=== PATIENT | male | born 1940 | race Caucasian/White ===

== ENCOUNTER 2024-06-07 12:14 | Inpatient (IN) | payer OTHER, MEDICARE ==
[~2024-06-07] VITALS: Ht 157.5 cm; Wt 58.7 kg
--- NOTE | 2024-06-07 12:41 | ED.PDOC ---
HPI Comments 83 Y M BIBA with PMHX of HTN, COPD, CAD, and CHF presents to the ED with CC of chest pain. Per EMS, patient has been experiencing intermittent left sided non- radiating chest pain x1hour. Patient relays, that he has associated symptoms of cough with you sputum and shortness of breath which have persisted x1week. Per EMS, patient was given 1g Tylenol and was put on 2L NC in route to ED stating at 90%. Patient denies fever, chills, body aches, or N/V/D. Chief Complaint: Chest Pain Time Seen by MD: 12:20 Reviewed Notes: Nurses Notes, [place] [employer] Ribs Notes, Medications, Allergies Information Source: Patient, Emergency Med Personnel Mode of Arrival: EMS Severity: Moderate Timing: Hours Duration: Since onset Prehospital treatment: Other (1g tyleno, 2L NC) Location: Chest (L) Radiation: No Radiation Onset: At Rest Cardiac Risk Factors: Smoker, HTN PE Risk Factors: None History of: None Associated Signs and Symptoms: SOB Past Medical History PAST MEDICAL HISTORY: CAD, Cancer, CHF, COPD, High Lipids, HTN Surgical History: CABG, Tonsillectomy Family History Family History: Unknown Social History Smoker: Cigarettes Alcohol: Denies ETOH Use Drugs: Denies Drug Use Lives In: Home Constitutional: denies: chills, diaphoresis, fatigue, fever, malaise, sweats, weakness, others EENTM: denies: blurred vision, double vision, ear bleeding, ear discharge, ear drainage, ear pain, ear ringing, eye pain, eye redness, hearing loss, mouth pain, mouth swelling, nasal discharge, nose bleeding, nose congestion, nose pain, photophobia, tearing, throat pain, throat swelling, voice changes, others Respiratory: reports: cough, shortness of breath; denies: hemoptysis, orthopnea, SOB at rest, SOB with excertion, stridor, wheezing, others Cardiovascular: reports: chest pain; denies: dizzy spells, diaphoresis, Dyspnea on exertion, edema, irregular heart beat, left arm pain, lightheadedness, palpitations, PND, syncope, others Gastrointestinal: denies: abdomen distended, abdominal pain, blood streaked bowels, constipated, diarrhea, dysphagia, difficulty swallowing, hematemesis, melena, nausea, poor appetite, poor fluid intake, rectal bleeding, rectal pain, vomiting, others Genitourinary: denies: burning, dysuria, flank pain, frequency, hematuria, incontinence, penile discharge, penile sore, pain, testicle pain, testicle swelling, urgency, others Neurological: denies: dizziness, fainting, headache, left sided numbness, left sided weakness, numbness, paresthesia, pre-existing deficit, right sided numbness, right sided weakness, seizure, speech problems, tingling, tremors, weakness, others Musculoskeletal: denies: back pain, gout, joint pain, joint swelling, muscle pain, muscle stiffness, neck pain, others Integumetry: denies: bruises, change in color, change in hair/nails, dryness, laceration, lesions, lumps, rash, wounds, others Allergic/Immunocompromised: denies: Difficulty Healing, Frequent Infections, Hives, Itching, others Hematologic/Lymphatic: denies: anemia, blood clots, easy bleeding, easy bruising, swollen glands, others Endocrine: denies: excessive hunger, excessive sweating, excessive thirst, excessive urination, flushing, intolerance to cold, intolerance to heat, une xplained weight gain, unexplained weight loss, others Psychiatric: denies: anxiety, bipolar disorder, depression, hopeless, panic disorder, schizophrenia, sleepless, suicidal, others All Other Systems: Reviewed and Negative Physical Exam General Appearance: Moderate Distress HEENT: Normal ENT Inspection, Pharynx Normal, TMs Normal Neck: Full Range of Motion, Non-Tender, Normal, Normal Inspection Respiratory: Chest Non-Tender, Decreased Breath Sounds, No Accessory Muscle Use, Rhonchi Cardiovascular: No Edema, No JVD, No Murmur, No Gallop, Normal Peripheral Pulses, Regular Rate/Rhythm Breast Exam: Deferred Gastrointestinal: No Organomegaly, Non Tender, No Pulsatile Mass, Normal Bowel Sounds, Soft Genitalia: Deferred Pelvic: Deferred Rectal: Deferred Extremities: No calf tenderness, Normal capillary refill, Normal inspection, Normal range of motion, Non-tender, No pedal edema Musculoskeletal : Apperance: Normal Neurologic: Alert, director of student affairs II-XII nml as Tested, No Motor Deficits, Normal Affect, Normal Mood, No Sensory Deficits Cerebellar Function: Normal Reflexes: Normal Skin: Dry, Normal Color, Warm Lymphatic: No Adenopathy EKG EKG : Pulse Rate (adult): 77 Rienzi: LAD Cardiac Rhythm: NSR Block: None Hypertrophy: None ST: Normal Was a procedure done? Was a procedure done?: No CP Differential Dx Differential Diagnosis: Angina, MA Differential Diagnosis: CHF, HTN Essential Differential Diagnosis: Chest Wall Pain, Costochondritis, Pneumonia X-Ray, Labs, Meds, VS Vital Signs Date Time Temp Pulse Resp B/P (MAP) Pulse Ox O2 Delivery O2 Flow Rate FiO2 06/07/24 13:05 56 06/07/24 12:57 68 20 98 Nasal Cannula* 2 28 06/07/24 12:56 98.1 68 20 123/81 (95) 98 98.1 06/07/24 12:41 77 06/07/24 12:18 98.8 60 19 142/51 (81) 97 06/07/24 12:16 77 Lab Test 06/07/24 13:43 06/07/24 12:29 Range/Units Troponin I High Sensitivity Pending 10 </=54 ng/L White Blood Count 7.3 4.4-10.8 10^3/uL Red Blood Count 4.38 L 4.5-5.90 10^6/uL Hemoglobin 12.9 L 13.5-17.5 g/dL Hematocrit 38.3 L 41.0-53.0 % Mean Corpuscular Volume 87.5 80.0-100.0 fL Mean Corpuscular Hemoglobin 29.5 28.0-32.0 pg Mean Corpuscular Hemoglobin Concent 33.7 32.0-36.0 g/dL Red Cell Distribution Width 14.1 11.8-14.3 % Platelet Count 256 140-450 10^3/uL Mean Platelet Volume 7.1 6.9-10.8 fL Neutrophils (%) (Auto) 68.7 37.0-80.0 % Lymphocytes (%) (Auto) 18.0 10.0-50.0 % Monocytes (%) (Auto) 12.6 H 0.0-12.0 % Eosinophils (%) (Auto) 0.3 0.0-7.0 % Basophils (%) (Auto) 0.4 0.0-2.0 % Neutrophils # (Auto) 5.0 1.6-8.6 10 ^3/uL Lymphocytes # (Auto) 1.3 0.4-5.4 10 ^3/uL Monocytes # (Auto) 0.9 0-1.3 10 ^3/uL Eosinophils # (Auto) 0 0-0.8 10 ^3/uL Basophils # (Auto) 0 0-0.2 10 ^3/uL Nucleated Red Blood Cells 0.0 % Sodium Level 138 136-145 mmol/L Potassium Level 2.7 L 3.5-5.1 mmol/L Chloride Level 106 98-107 mmol/L Carbon Dioxide Level 26 20-31 mmol/L Anion Gap 6 5-15 Blood Urea Nitrogen 9 9-23 mg/dL Creatinine 0.68 L 0.700-1.30 mg/dL Glomerular Filtration Rate Calc 91 >90 mL/min BUN/Creatinine Ratio 13.2 10.0-20.0 Serum Glucose 132 H 74-106 mg/dL Calcium Level 9.0 8.7-10.4 mg/dL Total Bilirubin 1.0 0.2-1.0 mg/dL Aspartate Amino Transferase (AST) 36 13-40 U/L Alanine Aminotransferase (ALT) 31 7-40 U/L Alkaline Phosphatase 94 46-116 U/L B-Type Natriuretic Peptide Pending Total Protein 5.9 5.7-8.2 g/dL Albumin 3.3 3.2-4.8 g/dL Current Medications Medications (Trade) Dose Ordered Sig/Berkley Route Start Time Stop Time Status Last Admin Methylprednisolone Sodium Succinate (Solu Medrol) 125 mg ONCE ONCE IV 06/07/24 12:30 06/07/24 12:31 DC 06/07/24 12:45 Repeat EKG showed 56 LAE with normal sinus rhythm The patient was given Solu-Medrol 125 mg IV push The patient's CBC is within normal limits. Chest x-ray shows multifocal pneumonia The chemistry panel is within normal limits. At this time, the patient will be admitted at this time Blood cultures x2 has been drawn. The lactic acid level is pending The patient will be started on Levaquin after the blood cultures were drawn The patient was being admitted at this time. The troponin level is negative We recommend a Cardiology consult secondary to the coronary syndrome Images Reviewed?: Images reviewed and evaluated by me Time of 1ST Reevaluation: 12:50 Reevaluation 1ST: Unchanged Patient Education/Counseling: Diagnosis, Treatment, Prognosis Family Education/Counseling: No Family Present Departure 1 Departure Time of Disposition: 13:08 Impression: Primary Impression: Acute coronary syndrome Additional Impression: Multifocal pneumonia Disposition: 09 ADMITTED INPATIENT Admit to: Tele Condition: Fair Critical Care Note Critical Care Time?: No Stability Stability form required: Yes Unstable for transfer: Telemetry monitoring (Telemetry monitoring required), ED Physician Assesment (Clinical assesment) Heart Score Heart Score: Heart Score Response (Comments) Value History Moderate Suspicious 1 EKG Repolarization Disturb 1 Age >65 2 Risk Factors 1 or 2 risk factors 1 Troponin Normal limit 0 Total 5 I personally scribed for LEANA BRIONES MD ([email or web address]) on 06/07/24 at 12:41. Electronically submitted by Saundra Mccarty ([email or web address]). I personally scribed for LEANA BRIONES MD ([email or web address]) on 06/07/24 at 13:33. Electronically submitted by Saundra Mccarty ([email or web address]). LEANA BRIONES MD Jun 07, 2024 12:41
[2024-06-07 12:42] LABS: Basophils # (auto) 0 10 ^3/uL (0-0.2); Basophils % (auto) 0.4 % (0.0-2.0); Eosinophils # (auto) 0 10 ^3/uL (0-0.8); Eosinophils % (auto) 0.3 % (0.0-7.0); Hematocrit 38.3 % (41.0-53.0); Hemoglobin 12.9 g/dL (13.5-17.5); Lymphocytes # (auto) 1.3 10 ^3/uL (0.4-5.4); Mean Corpuscular Hemoglobin 29.5 pg (28.0-32.0); Mean Corpuscular Hgb Conc. 33.7 g/dL (32.0-36.0); Mean Corpuscular Volume 87.5 fL (80.0-100.0); Monocytes # (auto) 0.9 10 ^3/uL (0-1.3); Monocytes % (auto) 12.6 % (0.0-12.0); Neutrophils % (auto) 68.7 % (37.0-80.0); Platelet Count (auto) 256 10^3/uL (140-450); Red Blood Cells 4.38 10^6/uL (4.5-5.90); Red Cell Distribution Width 14.1 % (11.8-14.3); White Blood Cell 7.3 10^3/uL (4.4-10.8)
[2024-06-07] MEDS: methylPREDNISolone SOD SUCC 125 MG/2 ML VL IV ONE (12:45)
--- NOTE | 2024-06-07 12:56 | DVH ---
CHEST RADIOGRAPH Indication: SOB Technique: Single frontal view of the chest was obtained Comparison: None FINDINGS: Lines and Tubes: None Lungs: Multifocal airspace opacities. Pleura: No effusion. No pneumothorax. Cardiomediastinal contours: Unremarkable Bones: No acute osseous abnormality. IMPRESSION: Multifocal pneumonia
[2024-06-07 12:57] VITALS: PULSE 68; RESP 20; O2SAT 98
[2024-06-07 13:44] LABS: Alanine Aminotransferase 31 U/L (7-40); Albumin 3.3 g/dL (3.2-4.8); Alkaline Phosphatase 94 U/L (46-116); Anion Gap 6 (5-15); Aspartate Aminotransferase 36 U/L (13-40); BUN/Creatinine Ratio 13.2 (10.0-20.0); Carbon Dioxide 26 mmol/L (20-31); Chloride 106 mmol/L (98-107); Sodium 138 mmol/L (136-145)
[2024-06-07 13:45] LABS: Total Protein 5.9 g/dL (5.7-8.2)
[2024-06-07 13:51] LABS: Blood Urea Nitrogen 9 mg/dL (9-23); Glucose 132 mg/dL (74-106); Potassium 2.7 mmol/L (3.5-5.1)
[2024-06-07] MEDS: levoFLOXacin 500MG 100 ML IV ONE (14:28)
[2024-06-07] MEDS: levoFLOXacin 500 MG TAB PO ONE (14:31)
[2024-06-07] MEDS: POTASSIUM CHL 20MEQ/100ML 100 ML IV ONE (15:35)
[2024-06-07] MEDS: POTASSIUM CHL 20 Meq TABLET PO ONE (15:35)
[2024-06-07 17:35] LABS: Urine Bacteria None Seen /hpf (None Seen)
[2024-06-07 18:11] LABS: Urine Blood Negative /uL (Negative); Urine Clarity Clear (Clear); Urine Color Light-Orange (Yellow); Urine Mucus FEW (None Seen); Urine Protein, UAD 1+ (Negative); Urine Specific Gravity 1.031 (1.001-1.035); Urine Squamous Epithelial Cell FEW /hpf (<5); Urine Urobilinogen 6 mg/dL (Negative); Urine WBC 3 /hpf (0 - 3); Urine pH 6.5 (5.0-9.0)
[2024-06-07 20:07] VITALS: PULSE 58; RESP 16; O2SAT 96
[2024-06-07] MEDS ORDERED: HYDROcodone-ACET 5/325MG TAB PO PRN (20:45)
[2024-06-07] MEDS ORDERED: DOCUSATE SOD 100 MG CAP PO PRN (20:45)
[2024-06-07] MEDS ORDERED: ONDANSETRON HCL 4 MG/2 ML VIAL IV PRN (20:45)
[2024-06-07] MEDS ORDERED: hydrALAZINE HCL 20 MG/ML VL IV PRN (20:45)
[2024-06-07] MEDS: FUROSEMIDE 20 MG/2 ML VIAL IV ONE (20:45)
[2024-06-07] MEDS: SODIUM CHLOR 0.9% PF (SALINE LOCK) 10ML VIAL/SYR IV SCH (22:00)
[2024-06-07] MEDS: FAMOTIDINE (10MG/ML) 2ML VL IV SCH (22:00)
[2024-06-07] MEDS: methylPREDNISolone SOD SUCC 40 MG/ML VL IV SCH (22:00)
--- NOTE | 2024-06-07 22:55 | DVHHP2 ---
History of Present Illness Reason for Visit: Chest pain History of Present Illness The patient is a 83-year-old male with multiple past medical history including cancer, Coronary artery disease, COPD, CHF, and hypertension who presented to [facility] ED with complaint of chest pain. Patient reports symptoms progressively get worse with left-sided chest pain, nonradiating, sharp in nature, cough with gardner sputum, shortness of breaths, rating 7/10 numeric scale, getting worse that prompted this visit. Patient was seen and evaluated in the ED, laboratory data shows WBC 7.3, platelets 256, sodium 138, potassium 2.7, BUN 9, creatinine 0.68, GFR 91, glucose 132, BNP 448.07, troponin 11, blood pressure 146/55, heart rate 58, temperature 98.4 F, O2 saturation 96% on oxygen. Chest x-ray revealing multifocal pneumonia. Patient was started on IV antibiotic regimen levofloxacin, please see medication orders section in the computer. On my assessment, patient denies chest pain at this moment, no headache, no dizziness, no diaphoresis, no diarrhea, no nausea, no vomiting, no fever, no chills. Patient was admitted for further evaluation and medical management. Past Medical History CAD, Cancer, CHF, COPD, High Lipids, HTN Past Surgical History CABG, Tonsillectomy Family History Reviewed, noncontributory to the management of this case. Past Social History The patient lives at home, denies smoking, alcohol or illicit drugs abuse. Review of Systems Constitutional: Yes: Weakness; No: Fever, Chills, Sweats, Malaise, Other Eyes: No: Pain, Vision change, Conjunctivae inflammation, Eyelid inflammation, Other, Redness ENT: No: Ear pain, Ear discharge, Nose pain, Nose discharge, Nose congestion, Mouth pain, Mouth swelling, Throat pain, Throat swelling, Other Respiratory: Cough, Shortness of breath; No: Dry, SOB with excertion, Wheezing, Hemoptysis, Pleuritic Pain, Sputum, Wheezing, Other Cardiovascular: Chest Pain; No: Palpitations, Orthopnea, Paroxysmal Noc. Dyspnea, Edema, Lt Headedness, Other Gastrointestinal: No: Nausea, Vomiting, Abdominal Pain, Diarrhea, Constipation, Melena, Hematochezia, Other Genitourinary: No Dysuria, No Frequency, No Incontinence, No Hematuria, No Retention, No Other Musculoskeletal: No: other, neck pain, shoulder pain, arm pain, back pain, hand pain, leg pain, foot pain Skin: No: Rash, Lesions, Jaundice, Bruising, Other Neurological: No: Weakness, Numbness, Incoordination, Change in speech, Confusion, Seizures, Other Medications Current Medications Medications Dose Ordered Sig/Berkley Route Start Time Stop Time Status Last Admin Dose Admin Levofloxacin/ Dextrose 100 ml @ 100 mls/hr DAILY IV 06/08/24 10:00 UNV Aspirin 81 mg DAILY PO 06/08/24 10:00 UNV Methylprednisolone Sodium Succinate 40 mg Q8HR IV 06/07/24 22:00 UNV Famotidine 20 mg Q12HR IV 06/07/24 22:00 UNV Furosemide 20 mg DAILY IV 06/08/24 10:00 UNV Hydralazine HCl 10 mg Q6HP PRN IV 06/07/24 20:45 UNV Sodium Chloride 10 ml Q8HR IV 06/07/24 22:00 UNV Acetaminophen/ Hydrocodone Bitart 1 tab Q4HP PRN PO 06/07/24 20:45 UNV Ondansetron HCl 4 mg Q4HP PRN IV 06/07/24 20:45 UNV Docusate Sodium 100 mg BIDPRN PRN PO 06/07/24 20:45 UNV Acetaminophen 650 mg Q6HP PRN PO 06/07/24 20:45 UNV Exam Vital Signs Vital Signs Date Time Temp Pulse Resp B/P (MAP) Pulse Ox O2 Delivery O2 Flow Rate FiO2 06/07/24 22:52 98.4 60 16 138/68 (91) 98 98.4 06/07/24 20:07 Nasal Cannula* 2 28 General Appearance: Alert, Oriented X3, Cooperative, No acute distress HEENT: Atraumatic, PERRLA, EOMI, Mucous membr. moist/pink Respiratory: Clear to auscultation, Normal air movement, Other (Diminished breath sounds) Cardiovascular: Regular rate, Normal S1, Normal S2, No murmurs Abdominal: Normal bowel sounds, Soft, No tenderness, No hepatospenomegaly, No masses Extremities: No clubbing, No cyanosis, No edema, Normal pulses, No tenderness/swelling Skin: No rashes, No breakdown, No significant lesion Neuro: Normal speech, Normal tone, Sensation intact, Cranial nerves 3-12 NL, Reflexes 2+, Other (Generalized weakness) Psych/Mental Status: Mental status NL, Mood NL Labs/Xrays Labs Test 06/07/24 17:30 06/07/24 15:15 06/07/24 14:54 06/07/24 12:29 Range/Units Urine Color Light-orange Yellow Urine Clarity Clear Clear Urine pH 6.5 5.0-9.0 Urine Specific [place] 1.031 1.001-1.035 Urine Protein 1+ H Negative Urine Ketones Negative Negative Urine Blood Negative Negative /uL Urine Nitrite Negative Negative Urine Bilirubin Negative Negative Urine Urobilinogen 6 Negative mg/dL Urine Leukocyte Esterase Negative Negative /uL Urine RBC 5 0 - 3 /hpf Urine WBC 3 0 - 3 /hpf Urine Squamous Epithelial Cells Few <5 /hpf Urine Bacteria None seen None Seen /hpf Urine Mucus Few None Seen Urine Glucose 2+ H Normal mg/dL Troponin I High Sensitivity 11 </=54 ng/L Lactic Acid Level 1.5 0.4-2.0 mmol/L White Blood Count 7.3 4.4-10.8 10^3/uL Red Blood Count 4.38 L 4.5-5.90 10^6/uL Hemoglobin 12.9 L 13.5-17.5 g/dL Hematocrit 38.3 L 41.0-53.0 % Mean Corpuscular Volume 87.5 80.0-100.0 fL Mean Corpuscular Hemoglobin 29.5 28.0-32.0 pg Mean Corpuscular Hemoglobin Concent 33.7 32.0-36.0 g/dL Red Cell Distribution Width 14.1 11.8-14.3 % Platelet Count 256 140-450 10^3/uL Mean Platelet Volume 7.1 6.9-10.8 fL Neutrophils (%) (Auto) 68.7 37.0-80.0 % Lymphocytes (%) (Auto) 18.0 10.0-50.0 % Monocytes (%) (Auto) 12.6 H 0.0-12.0 % Eosinophils (%) (Auto) 0.3 0.0-7.0 % Basophils (%) (Auto) 0.4 0.0-2.0 % Neutrophils # (Auto) 5.0 1.6-8.6 10 ^3/uL Lymphocytes # (Auto) 1.3 0.4-5.4 10 ^3/uL Monocytes # (Auto) 0.9 0-1.3 10 ^3/uL Eosinophils # (Auto) 0 0-0.8 10 ^3/uL Basophils # (Auto) 0 0-0.2 10 ^3/uL Nucleated Red Blood Cells 0.0 % Sodium Level 138 136-145 mmol/L Potassium Level 2.7 L 3.5-5.1 mmol/L Chloride Level 106 98-107 mmol/L Carbon Dioxide Level 26 20-31 mmol/L Anion Gap 6 5-15 Blood Urea Nitrogen 9 9-23 mg/dL Creatinine 0.68 L 0.700-1.30 mg/dL Glomerular Filtration Rate Calc 91 >90 mL/min BUN/Creatinine Ratio 13.2 10.0-20.0 Serum Glucose 132 H 74-106 mg/dL Hemoglobin A1c 6.1 H <5.7 % A1C Calcium Level 9.0 8.7-10.4 mg/dL Total Bilirubin 1.0 0.2-1.0 mg/dL Aspartate Amino Transferase (AST) 36 13-40 U/L Alanine Aminotransferase (ALT) 31 7-40 U/L Alkaline Phosphatase 94 46-116 U/L B-Type Natriuretic Peptide 448.07 0-100 pg/mL Total Protein 5.9 5.7-8.2 g/dL Albumin 3.3 3.2-4.8 g/dL PATIENT: LEONOR BAE ACCT: [id number] UNIT: [id number] : 1940 LOC: ER ROOM / BED: / AGE / SEX: 83 / M ADM STATUS: REG ER SERVICE 1239 ORDERING PHYSICIAN: LEANA BRIONES MD PROCEDURE(s): CXRP - CHEST PORTABLE REASON: SOB ORDER NUMBER(s): [id number], ACCESSION NUMBER(s): [id number] CHEST RADIOGRAPH Indication: SOB Technique: Single frontal view of the chest was obtained Comparison: None FINDINGS: Lines and Tubes: None Lungs: Multifocal airspace opacities. Pleura: No effusion. No pneumothorax. Cardiomediastinal contours: Unremarkable Bones: No acute osseous abnormality. IMPRESSION: Multifocal pneumonia Assessment/Plan Assessment/Plan Acute coronary syndrome Multifocal pneumonia Hypokalemia Hyperglycemia Acute exacerbation of congestive heart failure Plan 1. Admit to telemetry unit 2. Breathing treatment 3. Pain control management 4. IV antibiotic management 5. Management of fluids and electrolytes 6. Consultation for cardiology 7. Diagnostic test chest x-ray 8. DVT prophylaxis-on aspirin 9. Repeat labs CBC, CMP in a.m. 10. Home medication reviewed and reconciled 11. Continue with current medical management 12. Treatment plan discussed with patient and RN. Patient verbalized understanding. Plan discussed with: Patient, Other (RN) My Orders Orders - FRANKIE CR DNP Procedure Category Date Status Time Levofloxacin 500mg PHA 06/08/24 Logged (Levaquin 500mg/ 100m 10:00 Aspirin Tablet PHA 06/08/24 Logged 10:00 Methylprednisolone PHA 06/07/24 Logged Sod Succ (Solu Medrol 22:00 Famotidine Injection PHA 06/07/24 Logged (Pepcid Injection) 22:00 Furosemide Injection PHA 06/07/24 Logged (Lasix Injection) 20:45 Furosemide Injection PHA 06/08/24 Logged (Lasix Injection) 10:00 Hydralazine Injection PHA 06/07/24 Logged (Apresoline Inject 20:45 Allergies SARAH 06/07/24 In Process 20:33 Code Status CODE 06/07/24 Transmitted 20:33 Sodium Chloride Lock PHA 06/07/24 Logged (Saline Lock Ns) 22:00 Oxygen Per Hour RT 06/07/24 Transmitted 20:33 Hydrocodone-Acet PHA 06/07/24 Logged 5/325mg Tab ([place] 20:45 Ondansetron Hcl PHA 06/07/24 Logged (Zofran) 20:45 Docusate Sodium PHA 06/07/24 Logged Capsule (Colace 20:45 Fall Risk Precautions SARAH 06/07/[address] 20:33 Complete Blood Count LAB 06/08/24 Verified 04:00 Comprehensive LAB 06/08/24 Verified Metabolic Panel 04:00 Cardiac DIET 06/08/24 Transmitted Diet-2gna,Lofat,Lochol Breakfast Echo 2d Mode Cardiac US 06/07/24 Logged DOP 20:33 Condition: Serious SARAH 06/07/24 In Process 20:33 Acetaminophen Tablet PHA 06/07/24 Logged (Tylenol Tablet) 20:45 Sequential SARAH 06/07/24 In Process Compression Device Problem List: (1) Acute coronary syndrome (2) Multifocal pneumonia (3) Hypokalemia (4) Hyperglycemia (5) Acute exacerbation of congestive heart failure Date of Service: Jun 07, 2024 Billing Provider: FRANKIE CR DNP Common Visit Codes: [id number] INP/OBS CARE (HIGH) FRANKIE CR DNP Jun 07, 2024 22:55
[2024-06-07] MEDS ORDERED: MORPHINE SULFATE INJ 2 MG/ml SYRG IV PRN (23:00)
[2024-06-07] MEDS ORDERED: NITROGLYCERIN 0.4 MG SL TAB SL PRN (23:00)
[2024-06-08] VITALS (9 sets, daily range): BP systolic 120–160; BP diastolic 53–71; PULSE 53–66; RESP 14–18; TEMP 97.4–98.6; O2SAT 93–98
[2024-06-08] MEDS: ACETAMINOPHEN 325 MG TAB PO PRN (03:26)
[2024-06-08 07:56] LABS: Alanine Aminotransferase 28 U/L (7-40); Alkaline Phosphatase 91 U/L (46-116); Anion Gap 8 (5-15); Basophils # (auto) 0 10 ^3/uL (0-0.2); Basophils % (auto) 0.3 % (0.0-2.0); Blood Urea Nitrogen 13 mg/dL (9-23); Calcium 9.1 mg/dL (8.7-10.4); Carbon Dioxide 23 mmol/L (20-31); Eosinophils # (auto) 0 10 ^3/uL (0-0.8); Hematocrit 36.3 % (41.0-53.0); Hemoglobin 12.5 g/dL (13.5-17.5); Lymphocytes # (auto) 0.7 10 ^3/uL (0.4-5.4); Lymphocytes % (auto) 10.5 % (10.0-50.0); Mean Corpuscular Hemoglobin 29.9 pg (28.0-32.0); Mean Corpuscular Hgb Conc. 34.3 g/dL (32.0-36.0); Mean Corpuscular Volume 86.9 fL (80.0-100.0); Monocytes # (auto) 0.2 10 ^3/uL (0-1.3); Monocytes % (auto) 2.7 % (0.0-12.0); Neutrophils # (auto) 5.9 10 ^3/uL (1.6-8.6); Neutrophils % (auto) 86.5 % (37.0-80.0); Platelet Count (auto) 246 10^3/uL (140-450); Potassium 3.5 mmol/L (3.5-5.1); Red Blood Cells 4.17 10^6/uL (4.5-5.90); Red Cell Distribution Width 13.5 % (11.8-14.3); Sodium 140 mmol/L (136-145); White Blood Cell 6.8 10^3/uL (4.4-10.8)
[2024-06-08 07:57] LABS: Albumin 3.3 g/dL (3.2-4.8); Aspartate Aminotransferase 26 U/L (13-40); Bilirubin, Total 0.9 mg/dL (0.2-1.0); Total Protein 5.8 g/dL (5.7-8.2)
[2024-06-08 08:08] LABS: Chloride 109 mmol/L (98-107); Glucose 172 mg/dL (74-106)
[2024-06-08] MEDS: FUROSEMIDE 20 MG/2 ML VIAL IV SCH (09:41)
[2024-06-08] MEDS: ASPirin 81 mg TAB PO SCH (09:42)
[2024-06-08] MEDS ORDERED: levoFLOXacin 500MG 100 ML IV SCH (10:00)
[2024-06-08] MEDS: cefTRIAXone 1GM/50ML D5W 50 ML IV ONE (11:11)
[2024-06-08] MEDS ORDERED: FINA5TAB4 PO (11:20)
[2024-06-08] MEDS ORDERED: GABA250S7 PO (11:20)
[2024-06-08] MEDS ORDERED: METO25TA93 PO (11:28)
[2024-06-08] MEDS ORDERED: ATOR-47 PO (11:28)
[2024-06-08] MEDS ORDERED: NAP500T PO (11:28)
[2024-06-08] MEDS ORDERED: EMPA1TAB3 PO (11:28)
--- NOTE | 2024-06-08 12:30 | DVHPN2 ---
Reviewed: Care Plan, H&P, Labs, Medications, Previous Orders, Radiology Changes from previous H/P or p: No Changes Eyes: No Pain, No Vision change, No Conjunctivae inflammation, No Eyelid inflammation, No Other, No Redness ENT: No Ear pain, No Ear discharge, No Nose pain, No Nose discharge, No Nose congestion, No Mouth pain, No Mouth swelling, No Throat pain, No Throat swelling, No Other Cardiovascular: Chest Pain; No Palpitations, No Orthopnea, No Paroxysmal Noc. Dyspnea, No Edema, No Lt Headedness, No Other Respiratory: Cough; No Dry; Shortness of breath; No SOB with excertion, No Wheezing, No Hemoptysis, No Pleuritic Pain, No Sputum, No Other Gastrointestinal: No Nausea, No Vomiting, No Abdominal Pain, No Diarrhea, No Constipation, No Melena, No Hematochezia, No Other Genitourinary: No Dysuria, No Frequency, No Incontinence, No Hematuria, No Retention, No Other Musculoskeletal: No other, No neck pain, No shoulder pain, No arm pain, No back pain, No hand pain, No leg pain, No foot pain Skin: No Rash, No Lesions, No Jaundice, No Bruising, No Other Objective Vitals Vital Signs Date Time Temp Pulse Resp B/P (MAP) Pulse Ox O2 Delivery O2 Flow Rate FiO2 06/08/24 09:41 132/65 06/08/24 08:57 98.6 64 14 98 98.6 06/08/24 08:00 Nasal Cannula* 2 28 Intake/Output Intake and Output 06/08/24 07:00 Intake Total 400 ml Balance 400 ml Intake Oral 300 ml IV Total 100 ml # Voids 2 # Bowel Movements 2 Medications Current Medications Medications Dose Ordered Sig/Berkley Route Start Time Stop Time Status Last Admin Dose Admin Aspirin 81 mg DAILY PO 06/08/24 10:00 06/08/24 09:42 81 MG Methylprednisolone Sodium Succinate 40 mg Q8HR IV 06/07/24 22:00 06/08/24 05:16 40 MG Famotidine 20 mg Q12HR IV 06/07/24 22:00 06/08/24 09:41 20 MG Furosemide 20 mg DAILY IV 06/08/24 10:00 06/08/24 09:41 20 MG Hydralazine HCl 10 mg Q6HP PRN IV 06/07/24 20:45 Sodium Chloride 10 ml Q8HR IV 06/07/24 22:00 06/08/24 05:16 10 ML Acetaminophen/ Hydrocodone Bitart 1 tab Q4HP PRN PO 06/07/24 20:45 Ondansetron HCl 4 mg Q4HP PRN IV 06/07/24 20:45 Docusate Sodium 100 mg BIDPRN PRN PO 06/07/24 20:45 Acetaminophen 650 mg Q6HP PRN PO 06/07/24 20:45 06/08/24 03:26 650 MG Nitroglycerin 0.4 mg Q5MINP PRN SL 06/07/24 23:00 Morphine Sulfate 2 mg Q30M PRN IV 06/07/24 23:00 Ceftriaxone Sodium 50 ml @ 100 mls/hr DAILY@09 IV 06/09/24 09:00 Azithromycin 250 ml @ 125 mls/hr DAILY IV 06/09/24 10:00 Laboratory Results Laboratory Tests 06/08/24 06:21 Chemistry Test 06/07/24 12:29 06/08/24 06:21 Albumin 3.3 g/dL (3.2-4.8) 3.3 g/dL (3.2-4.8) Calcium Level 9.0 mg/dL (8.7-10.4) 9.1 mg/dL (8.7-10.4) Total Protein 5.9 g/dL (5.7-8.2) 5.8 g/dL (5.7-8.2) Cardiac Markers Test 06/07/24 12:29 B-Type Natriuretic Peptide 448.07 pg/mL (0-100) LFT Test 06/07/24 12:29 06/08/24 06:21 Alanine Aminotransferase (ALT) 31 U/L (7-40) 28 U/L (7-40) Alkaline Phosphatase 94 U/L (46-116) 91 U/L (46-116) Aspartate Amino Transferase (AST) 36 U/L (13-40) 26 U/L (13-40) Total Bilirubin 1.0 mg/dL (0.2-1.0) 0.9 mg/dL (0.2-1.0) HgA1c, TSH Test 06/07/24 12:29 Hemoglobin A1c 6.1 % A1C (<5.7) H Urinalysis Test 06/07/24 17:30 Urine Color Light-orange (Yellow) Urine Clarity Clear (Clear) Urine pH 6.5 (5.0-9.0) Urine Specific [place] 1.031 (1.001-1.035) Urine Protein 1+ (Negative) H Urine Ketones Negative (Negative) Urine Blood Negative /uL (Negative) Urine Nitrite Negative (Negative) Urine Bilirubin Negative (Negative) Urine Urobilinogen 6 mg/dL (Negative) Urine Leukocyte Esterase Negative /uL (Negative) Urine RBC 5 /hpf (0 - 3) Urine WBC 3 /hpf (0 - 3) Urine Squamous Epithelial Cells Few /hpf (<5) Urine Bacteria None seen /hpf (None Seen) Urine Mucus Few (None Seen) Urine Glucose 2+ mg/dL (Normal) H Labs and/or images reviewed: Labs reviewed by me, Image(s) reviewed by me Assessment/Plan Assessment/Plan Acute hypoxic respiratory failure: Oxygen by nasal cannula Bilateral multifocal pneumonia: Rocephin azithromycin Solu-Medrol Rapid flu test pending Ibeth test pending Acute chest pain troponin negative, consult for bottle labeler Dr. Yefri Haney Acute on chronic congestive heart failure exacerbation: Lasix Acute COPD exacerbation Coronary artery disease History of CABG Hypertension Hypercholesterolemia History of bladder cancer status post TURBT three years ago at [facility] Continue all home medications Time spent 65 minutes Patient is full code Advanced care planning time 20 minutes Continue all home medications Plan discussed with: Patient My Orders Orders - PAULINO TOPETE MD Procedure Category Date Status Time Ceftriaxone 1gm/50ml PHA 06/09/24 In Process D5w (Rocephin) 09:00 Azithromycin 500mg/ PHA 06/09/24 In Process 250ml (Zithromax 50 10:00 Azithromycin 500mg/ PHA 06/08/24 In Process 250ml (Zithromax 50 11:00 Rapid Influenza A&B LAB 06/08/24 Logged 12:17 Covid19 Antigen Marlene LAB 06/08/24 Logged D-Dimer LAB 06/08/24 Logged 12:17 Date of Service: Jun 08, 2024 Billing Provider: PAULINO TOPETE MD Common Visit Codes: [id number] CARE 30-74 MIN PAULINO TOPETE MD Jun 08, 2024 12:30
[2024-06-08] MEDS ORDERED: Empagliflozin (Jardiance) 25 MG TABLET PO SCH (13:00)
[2024-06-08] MEDS: AZITHROMYCIN 500MG/ 250ML 250 ML IV ONE (13:15)
[2024-06-08] MEDS: GABAPENTIN 400 MG CAP PO ONE (13:16)
[2024-06-08] MEDS: METOPROLOL SUCCINATE XL 50 MG TAB PO ONE (13:16)
[2024-06-08] MEDS: FINASTERIDE 5 MG TAB PO ONE (13:18)
[2024-06-08] MEDS ORDERED: EMPAGLIFLOZIN 25 MG PO SCH (18:00)
[2024-06-08 18:13] LABS: COVID19 ANTIGEN SOFIA FIA NEGATIVE (NEGATIVE); Rapid Influenza A Negative (Negative); Rapid Influenza B Negative (Negative)
--- NOTE | 2024-06-08 19:00 | DVHINCON2 ---
Date of service: Jun 08, 2024 Referring Physician Luis Manuel Reason for Consultation Chest pain History of Present Illness This is an 83 year old male with a PMH of HTN, COPD, CAD, and CHF who was brought in by EMS with complaints of intermittent left sided chest pain that began on 06/07. Patient has associated symptoms of cough with you sputum and shortness of breath which have persisted x 1week. Per EMS, patient was given 1g Tylenol and was put on 2L NC en route to ED stating at 90%. BNP 448. K 2.7, D- DIMER 1.85. Troponin is negative x 3. Chest x-ray shows multifocal pneumonia. Patient was admitted to the hospital. I am asked to consult on this patient. Family History: FH: cancer G8 MOTHER G8 FATHER MATERNAL GRANDMOTHR Allergies: Coded Allergies: NO KNOWN ALLERGIES (Unverified , 06/08/24) Home Meds Reported Medications Naproxen (NAPROSYN TABLET) 500 Mg Tb, 1 TAB PO BID, #60 TAB 1 Refill 06/08/24 Atorvastatin Calcium (ATORVASTATIN CALCIUM) 80 Mg Tab, 80 MG PO HS, TAB 06/08/24 Metoprolol Succinate (Metoprolol Succinate Er) 25 Mg Tab, 25 MG PO DAILY for 30 Days, MG 06/08/24 Finasteride (Finasteride) 5 Mg Tab, 5 MG PO DAILY, TAB 06/08/24 Gabapentin (GABAPENTIN) 250 Mg/5 Ml Kirsty, 400 MG PO DAILY, ML 06/08/24 Discontinued Reported Medications Empagliflozin (Jardiance) 25 Mg Tab, 25 MG PO DAILY, TAB 06/08/24 Current Medications Current Medications Medications (Trade) Dose Ordered Sig/[place] Route PRN Reason Start Time Stop Time Status Last Admin Levofloxacin/ Dextrose 100 ml @ 100 mls/hr DAILY IV 06/08/24 10:00 06/08/24 10:49 DC Aspirin 81 mg DAILY PO 06/08/24 10:00 06/08/24 09:42 Methylprednisolone Sodium Succinate (Solu Medrol) 40 mg Q8HR IV 06/07/24 22:00 06/08/24 14:04 Famotidine (Pepcid Injection) 20 mg Q12HR IV 06/07/24 22:00 06/08/24 09:41 Furosemide (Lasix Injection) 20 mg DAILY IV 06/08/24 10:00 06/08/24 09:41 Hydralazine HCl (Apresoline Injection) 10 mg Q6HP PRN IV SBP>150 06/07/24 20:45 Sodium Chloride (Saline Lock Ns) 10 ml Q8HR IV 06/07/24 22:00 06/08/24 14:04 Acetaminophen/ Hydrocodone Bitart ([place] 5/325MG Tab) 1 tab Q4HP PRN PO MODERATE PAIN (4-6 PAIN SCALE) 06/07/24 20:45 Ondansetron HCl (Zofran) 4 mg Q4HP PRN IV NAUSEA / VOMITING 06/07/24 20:45 Docusate Sodium (Colace Capsule) 100 mg BIDPRN PRN PO FOR CONSTIPATION 06/07/24 20:45 Acetaminophen (Tylenol Tablet) 650 mg Q6HP PRN PO PAIN SCALE 1-3 OR TEMP>100.4 06/07/24 20:45 06/08/24 03:26 Nitroglycerin (Ntrostat Sublingual) 0.4 mg Q5MINP PRN SL FOR CHEST PAIN 06/07/24 23:00 Morphine Sulfate 2 mg Q30M PRN IV FOR CHEST PAIN 06/07/24 23:00 Ceftriaxone Sodium 50 ml @ 100 mls/hr DAILY@09 IV 06/09/24 09:00 Azithromycin 250 ml @ 125 mls/hr DAILY IV 06/09/24 10:00 Atorvastatin Calcium (Lipitor) 80 mg HS PO 06/08/24 22:00 Finasteride (Proscar Tablet) 5 mg DAILY PO 06/09/24 10:00 Patient Own Medication 80 mg HS PO 06/08/24 22:00 06/08/24 12:43 DC Patient Own Medication 25 mg DAILY PO 06/08/24 13:00 Gabapentin (Neurontin Capsule) 400 mg DAILY PO 06/09/24 10:00 Metoprolol Succinate (Toprol Xl) 25 mg DAILY PO 06/09/24 10:00 Review of Systems Constitutional: denies: chills, diaphoresis, fatigue, fever, malaise, sweats, weakness, others EENTM: denies: blurred vision, double vision, ear bleeding, ear discharge, ear drainage, ear pain, ear ringing, eye pain, eye redness, hearing loss, mouth pain, mouth swelling, nasal discharge, nose bleeding, nose congestion, nose pain, photophobia, tearing, throat pain, throat swelling, voice changes, others Respiratory: reports: cough, shortness of breath; denies: hemoptysis, orthopnea, SOB at rest, SOB with excertion, stridor, wheezing, others Cardiovascular: reports: chest pain; denies: dizzy spells, diaphoresis, Dyspnea on exertion, edema, irregular heart beat, left arm pain, lightheadedness, palpitations, PND, syncope, others Gastrointestinal: denies: abdomen distended, abdominal pain, blood streaked bowels, constipated, diarrhea, dysphagia, difficulty swallowing, hematemesis, melena, nausea, poor appetite, poor fluid intake, rectal bleeding, rectal pain, vomiting, others Genitourinary: denies: burning, dysuria, flank pain, frequency, hematuria, incontinence, penile discharge, penile sore, pain, testicle pain, testicle swelling, urgency, others Neurological: denies: dizziness, fainting, headache, left sided numbness, left sided weakness, numbness, paresthesia, pre-existing deficit, right sided numbness, right sided weakness, seizure, speech problems, tingling, tremors, weakness, others Musculoskeletal: denies: back pain, gout, joint pain, joint swelling, muscle pain, muscle stiffness, neck pain, others Integumetry: denies: bruises, change in color, change in hair/nails, dryness, laceration, lesions, lumps, rash, wounds, others Allergic/Immunocompromised: denies: Difficulty Healing, Frequent Infections, Hives, Itching, others Hematologic/Lymphatic: denies: anemia, blood clots, easy bleeding, easy bruising, swollen glands, others Endocrine: denies: excessive hunger, excessive sweating, excessive thirst, excessive urination, flushing, intolerance to cold, intolerance to heat, unexplained weight gain, unexplained weight loss, others Psychiatric: denies: anxiety, bipolar disorder, depression, hopeless, panic disorder, schizophrenia, sleepless, suicidal, others All Other Systems: Reviewed and Negative Vital Signs Vital Signs Date Time Temp Pulse Resp B/P (MAP) Pulse Ox O2 Delivery O2 Flow Rate FiO2 06/08/24 13:16 62 132/65 06/08/24 13:00 98.0 14 98 98.0 06/08/24 08:00 Nasal Cannula* 2 28 Physical Exam GENERAL: Awake, alert, oriented. LUNGS: Clear. CARDIOVASCULAR: Heart sounds are good. ABDOMEN: Soft. Labs/Diagnostic Data Labs Test 06/08/24 13:30 06/08/24 06:21 06/07/24 17:30 06/07/24 15:15 Range/Units D-Dimer, Quantitative 1.85 H 0.0-0.49 mg/L FEU White Blood Count 6.8 4.4-10.8 10^3/uL Red Blood Count 4.17 L 4.5-5.90 10^6/uL Hemoglobin 12.5 L 13.5-17.5 g/dL Hematocrit 36.3 L 41.0-53.0 % Mean Corpuscular Volume 86.9 80.0-100.0 fL Mean Corpuscular Hemoglobin 29.9 28.0-32.0 pg Mean Corpuscular Hemoglobin Concent 34.3 32.0-36.0 g/dL Red Cell Distribution Width 13.5 11.8-14.3 % Platelet Count 246 140-450 10^3/uL Mean Platelet Volume 7.3 6.9-10.8 fL Neutrophils (%) (Auto) 86.5 H 37.0-80.0 % Lymphocytes (%) (Auto) 10.5 10.0-50.0 % Monocytes (%) (Auto) 2.7 0.0-12.0 % Eosinophils (%) (Auto) 0.0 0.0-7.0 % Basophils (%) (Auto) 0.3 0.0-2.0 % Neutrophils # (Auto) 5.9 1.6-8.6 10 ^3/uL Lymphocytes # (Auto) 0.7 0.4-5.4 10 ^3/uL Monocytes # (Auto) 0.2 0-1.3 10 ^3/uL Eosinophils # (Auto) 0 0-0.8 10 ^3/uL Basophils # (Auto) 0 0-0.2 10 ^3/uL Nucleated Red Blood Cells 0.0 % Sodium Level 140 136-145 mmol/L Potassium Level 3.5 3.5-5.1 mmol/L Chloride Level 109 H 98-107 mmol/L Carbon Dioxide Level 23 20-31 mmol/L Anion Gap 8 5-15 Blood Urea Nitrogen 13 9-23 mg/dL Creatinine 0.59 L 0.700-1.30 mg/dL Glomerular Filtration Rate Calc 95 >90 mL/min BUN/Creatinine Ratio 22.0 H 10.0-20.0 Serum Glucose 172 H 74-106 mg/dL Calcium Level 9.1 8.7-10.4 mg/dL Total Bilirubin 0.9 0.2-1.0 mg/dL Aspartate Amino Transferase (AST) 26 13-40 U/L Alanine Aminotransferase (ALT) 28 7-40 U/L Alkaline Phosphatase 91 46-116 U/L Total Protein 5.8 5.7-8.2 g/dL Albumin 3.3 3.2-4.8 g/dL Urine Color Light-orange Yellow Urine Clarity Clear Clear Urine pH 6.5 5.0-9.0 Urine Specific [place] 1.031 1.001-1.035 Urine Protein 1+ H Negative Urine Ketones Negative Negative Urine Blood Negative Negative /uL Urine Nitrite Negative Negative Urine Bilirubin Negative Negative Urine Urobilinogen 6 Negative mg/dL Urine Leukocyte Esterase Negative Negative /uL Urine RBC 5 0 - 3 /hpf Urine WBC 3 0 - 3 /hpf Urine Squamous Epithelial Cells Few <5 /hpf Urine Bacteria None seen None Seen /hpf Urine Mucus Few None Seen Urine Glucose 2+ H Normal mg/dL Troponin I High Sensitivity 11 </=54 ng/L Test 06/07/24 14:54 06/07/24 12:29 Range/Units Lactic Acid Level 1.5 0.4-2.0 mmol/L Hemoglobin A1c 6.1 H <5.7 % A1C B-Type Natriuretic Peptide 448.07 0-100 pg/mL Microbiology Date/Time Source Procedure Growth Status 06/07/24 14:54 Blood Blood Culture - Preliminary NO GROWTH AFTER 24 HOURS OF INCUBATION. Resulted Assessment Acute hypoxic respiratory failure. Bilateral multifocal pneumonia. Acute chest pain. Acute on chronic congestive heart failure exacerbation. Acute COPD exacerbation. Coronary artery disease. History of CABG. Hypertension. Hypercholesterolemia. History of bladder cancer status post TURBT three years ago at [facility]. Plan/Recommendation I agree with your ongoing assessment and care of plan. Telemetry reviewed. Echocardiogram. Morphine and [place] for pain management. Aspirin, Metoprolol, Lipitor. IV antibiotics as ordered. Diuretics with Lasix. IV Hydralazine for SBP > 150. Additional plan as per the hospital course. A total of 45 minutes was spent reviewing the patient record, examining the patient, making a diagnostic and therapeutic plan, discussing this plan with medical personnel, following up on diagnostic studies and following the patient for clinical stability excluding any and all procedures. At least 50% of this time was spent in direct, [id number] contact. Plan discussed with: Patient DEMETRI MOREJON MD Jun 08, 2024 16:33
--- NOTE | 2024-06-08 19:23 | DVHSR ---
APPROVED REPORT EXAM: Two-dimensional and M-mode echocardiogram with Doppler and color Doppler. Blood Pressure: 125/56 mmHg INDICATION Heart Failure RISK FACTORS Height: 5'2", Weight: 123 DIMENSIONS LVDd4.1 (3.8-5.7cm)LA (2D)5.6 (1.9-4.0cm)Aortic Root2.7 (2.0-3.7cm) LVDs2.5 (2.5-4.0cm)LA (MM) (1.9-4.0cm)Aortic Cusp Exc0.4 (1.5-2.0cm) EF (%) 70.0 (55-70%)Rt. Atrium4.0 (1.9-4.0cm)Asc. Aorta2.1 cm IVSd1.1 (0.7-1.1cm)RV (D)4.6 (1.8-2.4cm) PWd0.9 (0.7-1.1cm) Mitral Valve MitralMitral Stenosis E wave1.64m/sMV Mean GR.mmHg A wave0.82m/sMV Peak GR.mmHg E/A ratio2.02D MVAcm2 DECEL [id number] 1/2 Timems Aortic Valve Aortic ValveAortic Stenosis V10.91m/Gricel Mean GR.23mmHg V23.00m/Gricel Peak GR.36mmHg LVOT Diameter1.8 (1.8-2.4cm)Doppler AVA0.77cm2 Tricuspid Valve TR Velocity3.78m/s [id number] Conclusion MODERATE DEGREE LVH AND MODERATE DEGREE LV DIASTOLIC DYSFUNCTION LV EF IS 70% REMARKABLY DILATED LEFT ATRIUM SEVERE MITRAL VALVE REGURGITATION VERY HEAVILY CALCIFIED AORTIC LEAFLETS RVSP IS 65 MM OF HG AND IS VERY HIGH SEVERE PULMONARY HYPERTENSION PEAK AORTIC GRADIENT IS 36 MM OF HG AND MEAN GRADIENT IS 22 MM OF HG AORTIC VALVE AREA IS 0.77 CM SQUARE
[2024-06-08] MEDS: ATORVASTATIN 20 MG TAB PO SCH (21:01)
[2024-06-08] MEDS ORDERED: PATIENTS OWN MEDICATION (Atorvastatin Calcium 80 MG) PO SCH (22:00)
[2024-06-09] VITALS (7 sets, daily range): BP systolic 102–131; BP diastolic 44–57; PULSE 54–64; RESP 14–17; TEMP 97.3–98.1; O2SAT 96–99
[2024-06-09] MEDS: IOHEXOL 350 MG/ML 100ML IJ ONE (08:28)
--- NOTE | 2024-06-09 09:35 | DVH ---
PROCEDURE: CT CT ANGIO CHEST CONTRAST 06/09/2024 09:02 AM INDICATION: CHEST PAIN; ELEVATED D-DIMER COMPARISON: None TECHNIQUE: Coverage: Thorax IV contrast: Administered Phases: Arterial Multiplanar 3-D Maximum Intensity Projection images (MIP) reconstructions were created by the technvanessa iniguez in the coronal and sagittal planes as part of the CT angiography protocol. Adverse events: None Medication laboratory values were reviewed to verify the patient meets criteria for contrast administ ration. All CT scans at this medical facility are performed using dose modulation techniques as appropriate t o a performed exam including the following: Automated exposure control was utilized; adjustment of th e MA and/or KV according to patient size; and use of iterative reconstruction technique. Radiation dose: CTDIvol 8.3, 5.9 mGy, DLP 289 mGy*cm. FINDINGS: Cardiovascular: No evidence of acute or chronic pulmonary emboli identified. Coronary artery calcific ation noted. Atherosclerotic calcification of the aorta. Calcification of the aortic valve noted. A sb is normal in caliber. The heart is normal in size. Lungs: Small bilateral pleural effusions. Moderate centrilobular emphysema. A 3 cm spiculated mass /c onsolidation noted in the right middle lobe adjacent to the hilum. Multiple irregular opacities/mass es noted in the left lower lung zone measuring 1.7 cm in the superior segment of the right lower lobe , 2.7 cm and 2.3 cm in the inferior lingular lobe. No pneumothorax. The airways are patent. Thyroid: Unremarkable Esophagus: Unremarkable. Lymphatics: Mediastinal lymphadenopathy with the largest lymph node in the subcarinal region measurin g 3.2 x 2.2 cm. Mild bilateral hilar lymphadenopathy. Bones/soft tissues: No acute abnormality. 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 Upper abdomen: No acute abnormality. A subcentimeter calcified gallstone is noted in the gallbladder neck. Moderate fecal retention noted. Other: None. IMPRESSION: 1. No evidence of acute pulmonary emboli. 2. Bilateral multifocal irregular pulmonary opacities / masses concerning for malignancy. Recommend c linical and biochemical correlation. Further evaluation with PET scan and/or biopsy could be conside red. 3. Mediastinal and hilar lymphadenopathy with a 3.2 x 2.2 cm subcarinal lymph node noted. 4. Small bilateral pleural effusions. 5. Moderate centrilobular emphysema. 6. Diffuse atherosclerotic disease. 7. Cholelithiasis without evidence of cholecystitis.
[2024-06-09] MEDS: GABAPENTIN 400 MG CAP PO SCH (09:37)
[2024-06-09] MEDS: cefTRIAXone 1GM/50ML D5W 50 ML IV SCH (09:37)
[2024-06-09] MEDS: FINASTERIDE 5 MG TAB PO SCH (09:38)
[2024-06-09] MEDS: EMPAGLIFLOZIN 25 MG PO SCH (09:41)
[2024-06-09] MEDS: METOPROLOL SUCCINATE XL 50 MG TAB PO SCH (09:42)
--- NOTE | 2024-06-09 09:45 | DVHPN2 ---
Reviewed: Care Plan, H&P, Labs, Medications, Previous Orders, Radiology Changes from previous H/P or p: No Changes Eyes: No Pain, No Vision change, No Conjunctivae inflammation, No Eyelid inflammation, No Other, No Redness ENT: No Ear pain, No Ear discharge, No Nose pain, No Nose discharge, No Nose congestion, No Mouth pain, No Mouth swelling, No Throat pain, No Throat swelling, No Other Cardiovascular: Chest Pain; No Palpitations, No Orthopnea, No Paroxysmal Noc. Dyspnea, No Edema, No Lt Headedness, No Other Respiratory: Cough; No Dry; Shortness of breath; No SOB with excertion, No Wheezing, No Hemoptysis, No Pleuritic Pain, No Sputum, No Other Gastrointestinal: No Nausea, No Vomiting, No Abdominal Pain, No Diarrhea, No Constipation, No Melena, No Hematochezia, No Other Genitourinary: No Dysuria, No Frequency, No Incontinence, No Hematuria, No Retention, No Other Musculoskeletal: No other, No neck pain, No shoulder pain, No arm pain, No back pain, No hand pain, No leg pain, No foot pain Skin: No Rash, No Lesions, No Jaundice, No Bruising, No Other Objective Vitals Vital Signs Date Time Temp Pulse Resp B/P (MAP) Pulse Ox O2 Delivery O2 Flow Rate FiO2 06/09/24 01:00 97.5 56 16 128/57 (80) 99 97.5 06/08/24 20:00 Nasal Cannula* 2 28 Intake/Output Intake and Output 06/09/24 07:00 Intake Total 1500 ml Balance 1500 ml Intake Oral 1200 ml IV Total 300 ml # Voids 8 # Bowel Movements 2 Medications Current Medications Medications Dose Ordered Sig/[place] Route Start Time Stop Time Status Last Admin Dose Admin Aspirin 81 mg DAILY PO 06/08/24 10:00 06/08/24 09:42 81 MG Methylprednisolone Sodium Succinate 40 mg Q8HR IV 06/07/24 22:00 06/09/24 05:49 40 MG Famotidine 20 mg Q12HR IV 06/07/24 22:00 06/08/24 21:02 20 MG Furosemide 20 mg DAILY IV 06/08/24 10:00 06/08/24 09:41 20 MG Hydralazine HCl 10 mg Q6HP PRN IV 06/07/24 20:45 Sodium Chloride 10 ml Q8HR IV 06/07/24 22:00 06/09/24 05:49 10 ML Acetaminophen/ Hydrocodone Bitart 1 tab Q4HP PRN PO 06/07/24 20:45 Ondansetron HCl 4 mg Q4HP PRN IV 06/07/24 20:45 Docusate Sodium 100 mg BIDPRN PRN PO 06/07/24 20:45 Acetaminophen 650 mg Q6HP PRN PO 06/07/24 20:45 06/08/24 03:26 650 MG Nitroglycerin 0.4 mg Q5MINP PRN SL 06/07/24 23:00 Morphine Sulfate 2 mg Q30M PRN IV 06/07/24 23:00 Ceftriaxone Sodium 50 ml @ 100 mls/hr DAILY@09 IV 06/09/24 09:00 Azithromycin 250 ml @ 125 mls/hr DAILY IV 06/09/24 10:00 Atorvastatin Calcium 80 mg HS PO 06/08/24 22:00 06/08/24 21:01 80 MG Finasteride 5 mg DAILY PO 06/09/24 10:00 Gabapentin 400 mg DAILY PO 06/09/24 10:00 Metoprolol Succinate 25 mg DAILY PO 06/09/24 10:00 Patient Own Medication 12.5 DAILY PO 06/09/24 10:00 Laboratory Results Laboratory Tests 06/08/24 06:21 Coagulation Test 06/08/24 13:30 D-Dimer, Quantitative 1.85 mg/L FEU (0.0-0.49) H Urinalysis Test 06/07/24 17:30 Urine Color Light-orange (Yellow) Urine Clarity Clear (Clear) Urine pH 6.5 (5.0-9.0) Urine Specific [place] 1.031 (1.001-1.035) Urine Protein 1+ (Negative) H Urine Ketones Negative (Negative) Urine Blood Negative /uL (Negative) Urine Nitrite Negative (Negative) Urine Bilirubin Negative (Negative) Urine Urobilinogen 6 mg/dL (Negative) Urine Leukocyte Esterase Negative /uL (Negative) Urine RBC 5 /hpf (0 - 3) Urine WBC 3 /hpf (0 - 3) Urine Squamous Epithelial Cells Few /hpf (<5) Urine Bacteria None seen /hpf (None Seen) Urine Mucus Few (None Seen) Urine Glucose 2+ mg/dL (Normal) H Microbiology Microbiology Date/Time Source Procedure Growth Status 06/07/24 14:54 Blood Blood Culture - Preliminary NO GROWTH AFTER 24 HOURS OF INCUBATION. Resulted Labs and/or images reviewed: Labs reviewed by me, Image(s) reviewed by me Assessment/Plan Assessment/Plan Acute hypoxic respiratory failure: Oxygen by nasal cannula Bilateral multifocal pneumonia: Rocephin azithromycin Solu-Medrol Rapid flu test negative Ibeth test negative Acute chest pain troponin negative, consult for glove sewer Dr. Yefri Haney Acute on chronic congestive heart failure exacerbation: Lasix, echo 70 % ejection fraction Acute COPD exacerbation Coronary artery disease D-dimer elevated 1.85 PE ruled out History of CABG Hypertension Hypercholesterolemia History of bladder cancer status post TURBT three years ago at [facility] Continue all home medications Time spent 55 minutes Patient is full code Advanced care planning time 20 minutes Continue all home medications Plan discussed with: Patient My Orders Orders - PAULINO TOPETE MD Procedure Category Date Status Time Ceftriaxone 1gm/50ml PHA 06/09/24 In Process D5w (Rocephin) 09:00 Azithromycin 500mg/ PHA 06/09/24 In Process 250ml (Zithromax 50 10:00 * Cardiology Consult CONS 06/08/24 Transmitted 12:21 Atorvastatin (Lipitor) PHA 06/08/24 In Process 22:00 Finasteride Tablet PHA 06/09/24 In Process (Proscar Tablet) 10:00 Gabapentin Capsule PHA 06/09/24 In Process (Neurontin Capsule) 10:00 Metoprolol Xl PHA 06/09/24 In Process Succinate (Toprol Xl) 10:00 Patients Own PHA 06/09/24 In Process Medication 10:00 Date of Service: Jun 09, 2024 Billing Provider: PAULINO TOPETE MD Common Visit Codes: [id number] INP/OBS CARE(HIGH) PAULINO TOPETE MD Jun 09, 2024 09:45
[2024-06-09] MEDS: AZITHROMYCIN 500MG/ 250ML 250 ML IV SCH (10:37)
--- NOTE | 2024-06-09 21:50 | DVHPN2 ---
Progress Note - Dictate Date Seen: Jun 09, 2024 Medical Necessity Reason Pt with a Central, PICC or Fol: No Subjective Patient was seen and evaluated in follow up. Patient is complaining of generalized pain. Echocardiogram shows an EF of 70%. CTA chest showed no evidence of acute pulmonary emboli. There is bilateral multifocal irregular pulmonary opacities / masses concerning for malignancy. Mediastinal and hilar lymphadenopathy with a 3.2 x 2.2 cm subcarinal lymph node noted. Small bilateral pleural effusions.Moderate centrilobular emphysema. Diffuse atherosclerotic disease. Cholelithiasis without evidence of cholecystitis. Telemetry reviewed. vital signs Vital Sign Date Time Temp Pulse Resp B/P (MAP) Pulse Ox O2 Delivery O2 Flow Rate FiO2 06/09/24 17:00 97.6 60 16 109/49 (69) 96 97.6 06/09/24 08:00 Nasal Cannula* 2 28 Total Intake and Output 06/08/24 06/08/24 06/09/24 15:00 23:00 07:00 Intake Total 1100 ml 400 ml Balance 1100 ml 400 ml medications Current Medications Medications Dose Ordered Sig/[place] Route Start Time Stop Time Status Last Admin Dose Admin Aspirin 81 mg DAILY PO 06/08/24 10:00 06/08/24 09:42 81 MG Methylprednisolone Sodium Succinate 40 mg Q8HR IV 06/07/24 22:00 06/09/24 14:11 40 MG Famotidine 20 mg Q12HR IV 06/07/24 22:00 06/09/24 09:38 20 MG Furosemide 20 mg DAILY IV 06/08/24 10:00 06/09/24 09:40 20 MG Hydralazine HCl 10 mg Q6HP PRN IV 06/07/24 20:45 Sodium Chloride 10 ml Q8HR IV 06/07/24 22:00 06/09/24 14:11 10 ML Acetaminophen/ Hydrocodone Bitart 1 tab Q4HP PRN PO 06/07/24 20:45 Ondansetron HCl 4 mg Q4HP PRN IV 06/07/24 20:45 Docusate Sodium 100 mg BIDPRN PRN PO 06/07/24 20:45 Acetaminophen 650 mg Q6HP PRN PO 06/07/24 20:45 06/08/24 03:26 650 MG Nitroglycerin 0.4 mg Q5MINP PRN SL 06/07/24 23:00 Morphine Sulfate 2 mg Q30M PRN IV 06/07/24 23:00 Ceftriaxone Sodium 50 ml @ 100 mls/hr DAILY@09 IV 06/09/24 09:00 06/09/24 09:37 100 MLS/HR Azithromycin 250 ml @ 125 mls/hr DAILY IV 06/09/24 10:00 06/09/24 10:37 125 MLS/HR Atorvastatin Calcium 80 mg HS PO 06/08/24 22:00 06/08/24 21:01 80 MG Finasteride 5 mg DAILY PO 06/09/24 10:00 06/09/24 09:38 5 MG Gabapentin 400 mg DAILY PO 06/09/24 10:00 06/09/24 09:37 400 MG Metoprolol Succinate 25 mg DAILY PO 06/09/24 10:00 Patient Own Medication 12.5 DAILY PO 06/09/24 10:00 06/09/24 09:41 12.5 objective GENERAL: Awake, alert, oriented. LUNGS: Clear. CARDIOVASCULAR: Heart sounds are good. ABDOMEN: Soft. laboratory and microbiology Laboratory Tests 06/08/24 06:21 Test 06/08/24 06:21 Range/Units Serum Glucose 172 H 74-106 mg/dL Problem List Acute hypoxic respiratory failure. Bilateral multifocal pneumonia. Acute chest pain. Acute on chronic congestive heart failure exacerbation. Acute COPD exacerbation. Coronary artery disease. History of CABG. Hypertension. Hypercholesterolemia. History of bladder cancer status post TURBT three years ago at [facility]. Assessment/Plan Continued all current supportive medical care. Morphine and [place] for pain management. Aspirin, Metoprolol, Lipitor. IV antibiotics as ordered. Diuretics with Lasix. IV Hydralazine for SBP > 150. Additional plan as per the hospital course. Plan discussed with: Patient DEMETRI MOREJON MD Jun 09, 2024 18:28
[2024-06-10] VITALS (7 sets, daily range): BP systolic 105–124; BP diastolic 36–76; PULSE 51–62; RESP 16–22; TEMP 97.4–97.9; O2SAT 96–98
--- NOTE | 2024-06-10 10:30 | DVHPN2 ---
Reviewed: Care Plan, H&P, Labs, Medications, Previous Orders, Radiology Changes from previous H/P or p: No Changes Eyes: No Pain, No Vision change, No Conjunctivae inflammation, No Eyelid inflammation, No Other, No Redness ENT: No Ear pain, No Ear discharge, No Nose pain, No Nose discharge, No Nose congestion, No Mouth pain, No Mouth swelling, No Throat pain, No Throat swelling, No Other Cardiovascular: Chest Pain; No Palpitations, No Orthopnea, No Paroxysmal Noc. Dyspnea, No Edema, No Lt Headedness, No Other Respiratory: Cough; No Dry; Shortness of breath; No SOB with excertion, No Wheezing, No Hemoptysis, No Pleuritic Pain, No Sputum, No Other Gastrointestinal: No Nausea, No Vomiting, No Abdominal Pain, No Diarrhea, No Constipation, No Melena, No Hematochezia, No Other Genitourinary: No Dysuria, No Frequency, No Incontinence, No Hematuria, No Retention, No Other Musculoskeletal: No other, No neck pain, No shoulder pain, No arm pain, No back pain, No hand pain, No leg pain, No foot pain Skin: No Rash, No Lesions, No Jaundice, No Bruising, No Other Objective Vitals Vital Signs Date Time Temp Pulse Resp B/P (MAP) Pulse Ox O2 Delivery O2 Flow Rate FiO2 06/10/24 09:08 56 110/56 06/10/24 08:49 97.5 16 98 97.5 06/10/24 08:17 Nasal Cannula* 2 28 Intake/Output Intake and Output 06/10/24 07:00 Intake Total 2980 ml Output Total 1910 ml Balance 1070 ml Intake Oral 2680 ml IV Total 300 ml Output Urine Total 1910 ml Medications Current Medications Medications Dose Ordered Sig/Berkley Route Start Time Stop Time Status Last Admin Dose Admin Aspirin 81 mg DAILY PO 06/08/24 10:00 06/08/24 09:42 81 MG Methylprednisolone Sodium Succinate 40 mg Q8HR IV 06/07/24 22:00 06/10/24 05:38 40 MG Famotidine 20 mg Q12HR IV 06/07/24 22:00 06/10/24 09:07 20 MG Furosemide 20 mg DAILY IV 06/08/24 10:00 06/10/24 09:07 20 MG Hydralazine HCl 10 mg Q6HP PRN IV 06/07/24 20:45 Sodium Chloride 10 ml Q8HR IV 06/07/24 22:00 06/10/24 05:38 10 ML Acetaminophen/ Hydrocodone Bitart 1 tab Q4HP PRN PO 06/07/24 20:45 Ondansetron HCl 4 mg Q4HP PRN IV 06/07/24 20:45 Docusate Sodium 100 mg BIDPRN PRN PO 06/07/24 20:45 Acetaminophen 650 mg Q6HP PRN PO 06/07/24 20:45 06/08/24 03:26 650 MG Nitroglycerin 0.4 mg Q5MINP PRN SL 06/07/24 23:00 Morphine Sulfate 2 mg Q30M PRN IV 06/07/24 23:00 Ceftriaxone Sodium 50 ml @ 100 mls/hr DAILY@09 IV 06/09/24 09:00 06/10/24 09:06 100 MLS/HR Azithromycin 250 ml @ 125 mls/hr DAILY IV 06/09/24 10:00 06/09/24 10:37 125 MLS/HR Atorvastatin Calcium 80 mg HS PO 06/08/24 22:00 06/09/24 21:23 80 MG Finasteride 5 mg DAILY PO 06/09/24 10:00 06/10/24 09:08 5 MG Gabapentin 400 mg DAILY PO 06/09/24 10:00 06/10/24 09:08 400 MG Metoprolol Succinate 25 mg DAILY PO 06/09/24 10:00 06/10/24 09:08 25 MG Patient Own Medication 12.5 DAILY PO 06/09/24 10:00 06/10/24 09:22 12.5 Laboratory Results Laboratory Tests 06/08/24 06:21 Urinalysis Test 06/07/24 17:30 Urine Color Light-orange (Yellow) Urine Clarity Clear (Clear) Urine pH 6.5 (5.0-9.0) Urine Specific [place] 1.031 (1.001-1.035) Urine Protein 1+ (Negative) H Urine Ketones Negative (Negative) Urine Blood Negative /uL (Negative) Urine Nitrite Negative (Negative) Urine Bilirubin Negative (Negative) Urine Urobilinogen 6 mg/dL (Negative) Urine Leukocyte Esterase Negative /uL (Negative) Urine RBC 5 /hpf (0 - 3) Urine WBC 3 /hpf (0 - 3) Urine Squamous Epithelial Cells Few /hpf (<5) Urine Bacteria None seen /hpf (None Seen) Urine Mucus Few (None Seen) Urine Glucose 2+ mg/dL (Normal) H Microbiology Microbiology Date/Time Source Procedure Growth Status 06/07/24 14:54 Blood Blood Culture - Preliminary NO GROWTH AFTER 48 HOURS OF INCUBATION. 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 Yefri Hanye appreciated Acute on chronic congestive heart failure exacerbation: Lasix, echo 70 % ejection fraction Acute COPD exacerbation Coronary artery disease D-dimer elevated 1.85 PE ruled out History of CABG Hypertension Hypercholesterolemia History of bladder cancer status post TURBT three years ago at [facility] Continue all home medications Time spent 55 minutes Patient is full code Advanced care planning time 20 minutes Continue all home medications Plan discussed with: Patient Date of Service: Jun 10, 2024 Billing Provider: PAULINO TOPETE MD Common Visit Codes: [id number] INP/OBS CARE(HIGH) PAULINO TOPETE MD Jun 10, 2024 10:30
--- NOTE | 2024-06-10 23:09 | DVHPN2 ---
Progress Note - Dictate Date Seen: Jun 10, 2024 Medical Necessity Reason Pt with a Central, PICC or Fol: No Subjective Patient was seen and evaluated in follow up. Patient is complaining of generalized pain. Prelim blood cultures showed no growth after 72 hours. Telemetry reviewed. vital signs Vital Sign Date Time Temp Pulse Resp B/P (MAP) Pulse Ox O2 Delivery O2 Flow Rate FiO2 06/10/24 16:43 97.6 53 22 116/41 (66) 97 97.6 06/10/24 08:17 Nasal Cannula* 2 28 Total Intake and Output 06/09/24 06/09/24 06/10/24 15:00 23:00 07:00 Intake Total 300 ml 1980 ml 700 ml Output Total 1200 ml 710 ml Balance 300 ml 780 ml -10 ml medications Current Medications Medications Dose Ordered Sig/Berkley Route Start Time Stop Time Status Last Admin Dose Admin Aspirin 81 mg DAILY PO 06/08/24 10:00 06/10/24 10:00 81 MG Methylprednisolone Sodium Succinate 40 mg Q8HR IV 06/07/24 22:00 06/10/24 15:57 40 MG Famotidine 20 mg Q12HR IV 06/07/24 22:00 06/10/24 09:07 20 MG Furosemide 20 mg DAILY IV 06/08/24 10:00 06/10/24 09:07 20 MG Hydralazine HCl 10 mg Q6HP PRN IV 06/07/24 20:45 Sodium Chloride 10 ml Q8HR IV 06/07/24 22:00 06/10/24 14:00 10 ML Acetaminophen/ Hydrocodone Bitart 1 tab Q4HP PRN PO 06/07/24 20:45 Ondansetron HCl 4 mg Q4HP PRN IV 06/07/24 20:45 Docusate Sodium 100 mg BIDPRN PRN PO 06/07/24 20:45 Acetaminophen 650 mg Q6HP PRN PO 06/07/24 20:45 06/08/24 03:26 650 MG Nitroglycerin 0.4 mg Q5MINP PRN SL 06/07/24 23:00 Morphine Sulfate 2 mg Q30M PRN IV 06/07/24 23:00 Ceftriaxone Sodium 50 ml @ 100 mls/hr DAILY@09 IV 06/09/24 09:00 06/10/24 09:06 100 MLS/HR Azithromycin 250 ml @ 125 mls/hr DAILY IV 06/09/24 10:00 06/10/24 10:00 125 MLS/HR Atorvastatin Calcium 80 mg HS PO 06/08/24 22:00 06/09/24 21:23 80 MG Finasteride 5 mg DAILY PO 06/09/24 10:00 06/10/24 09:08 5 MG Gabapentin 400 mg DAILY PO 06/09/24 10:00 06/10/24 09:08 400 MG Metoprolol Succinate 25 mg DAILY PO 06/09/24 10:00 06/10/24 09:08 25 MG Patient Own Medication 12.5 DAILY PO 06/09/24 10:00 06/10/24 09:22 12.5 objective GENERAL: Awake, alert, oriented. LUNGS: Clear. CARDIOVASCULAR: Heart sounds are good. ABDOMEN: Soft. laboratory and microbiology Laboratory Tests 06/08/24 06:21 Test 06/08/24 06:21 Range/Units Serum Glucose 172 H 74-106 mg/dL Problem List Acute hypoxic respiratory failure. Bilateral multifocal pneumonia. Acute chest pain. Acute on chronic congestive heart failure exacerbation. Acute COPD exacerbation. Coronary artery disease. History of CABG. Hypertension. Hypercholesterolemia. History of bladder cancer status post TURBT three years ago at [facility]. Assessment/Plan Continued all current supportive medical care. Morphine and [place] for pain management. Aspirin, Metoprolol, Lipitor. IV antibiotics as ordered. Diuretics with Lasix. IV Hydralazine for SBP > 150. Additional plan as per the hospital course. Plan discussed with: Patient DEMETRI MOREJON MD Jun 10, 2024 19:27
[2024-06-11] VITALS (8 sets, daily range): BP systolic 94–148; BP diastolic 43–80; PULSE 49–63; RESP 15–18; TEMP 97.1–97.9; O2SAT 96–99
--- NOTE | 2024-06-11 11:01 | DVHPN2 ---
Reviewed: Care Plan, H&P, Labs, Medications, Previous Orders, Radiology Changes from previous H/P or p: No Changes Eyes: No Pain, No Vision change, No Conjunctivae inflammation, No Eyelid inflammation, No Other, No Redness ENT: No Ear pain, No Ear discharge, No Nose pain, No Nose discharge, No Nose congestion, No Mouth pain, No Mouth swelling, No Throat pain, No Throat swelling, No Other Cardiovascular: Chest Pain; No Palpitations, No Orthopnea, No Paroxysmal Noc. Dyspnea, No Edema, No Lt Headedness, No Other Respiratory: Cough; No Dry; Shortness of breath; No SOB with excertion, No Wheezing, No Hemoptysis, No Pleuritic Pain, No Sputum, No Other Gastrointestinal: No Nausea, No Vomiting, No Abdominal Pain, No Diarrhea, No Constipation, No Melena, No Hematochezia, No Other Genitourinary: No Dysuria, No Frequency, No Incontinence, No Hematuria, No Retention, No Other Musculoskeletal: No other, No neck pain, No shoulder pain, No arm pain, No back pain, No hand pain, No leg pain, No foot pain Skin: No Rash, No Lesions, No Jaundice, No Bruising, No Other Objective Vitals Vital Signs Date Time Temp Pulse Resp B/P (MAP) Pulse Ox O2 Delivery O2 Flow Rate FiO2 06/11/24 08:43 97.6 52 16 94/43 (60) 98 97.6 06/10/24 20:00 Nasal Cannula* 2 28 Intake/Output Intake and Output 06/11/24 07:00 Intake Total 1050 ml Output Total 1700 ml Balance -650 ml Intake Oral 1050 ml Output Urine Total 1700 ml Medications Current Medications Medications Dose Ordered Sig/Berkley Route Start Time Stop Time Status Last Admin Dose Admin Aspirin 81 mg DAILY PO 06/08/24 10:00 06/11/24 08:32 81 MG Methylprednisolone Sodium Succinate 40 mg Q8HR IV 06/07/24 22:00 06/11/24 05:43 40 MG Famotidine 20 mg Q12HR IV 06/07/24 22:00 06/11/24 08:30 20 MG Furosemide 20 mg DAILY IV 06/08/24 10:00 06/11/24 08:30 20 MG Hydralazine HCl 10 mg Q6HP PRN IV 06/07/24 20:45 Sodium Chloride 10 ml Q8HR IV 06/07/24 22:00 06/11/24 05:44 10 ML Acetaminophen/ Hydrocodone Bitart 1 tab Q4HP PRN PO 06/07/24 20:45 Ondansetron HCl 4 mg Q4HP PRN IV 06/07/24 20:45 Docusate Sodium 100 mg BIDPRN PRN PO 06/07/24 20:45 Acetaminophen 650 mg Q6HP PRN PO 06/07/24 20:45 06/08/24 03:26 650 MG Nitroglycerin 0.4 mg Q5MINP PRN SL 06/07/24 23:00 Morphine Sulfate 2 mg Q30M PRN IV 06/07/24 23:00 Ceftriaxone Sodium 50 ml @ 100 mls/hr DAILY@09 IV 06/09/24 09:00 06/11/24 08:31 100 MLS/HR Azithromycin 250 ml @ 125 mls/hr DAILY IV 06/09/24 10:00 06/10/24 10:00 125 MLS/HR Atorvastatin Calcium 80 mg HS PO 06/08/24 22:00 06/10/24 21:31 80 MG Finasteride 5 mg DAILY PO 06/09/24 10:00 06/11/24 08:31 5 MG Gabapentin 400 mg DAILY PO 06/09/24 10:00 06/11/24 08:31 400 MG Metoprolol Succinate 25 mg DAILY PO 06/09/24 10:00 06/11/24 08:32 25 MG Patient Own Medication 12.5 DAILY PO 06/09/24 10:00 06/11/24 08:32 12.5 Laboratory Results Laboratory Tests 06/08/24 06:21 Urinalysis Test 06/07/24 17:30 Urine Color Light-orange (Yellow) Urine Clarity Clear (Clear) Urine pH 6.5 (5.0-9.0) Urine Specific [place] 1.031 (1.001-1.035) Urine Protein 1+ (Negative) H Urine Ketones Negative (Negative) Urine Blood Negative /uL (Negative) Urine Nitrite Negative (Negative) Urine Bilirubin Negative (Negative) Urine Urobilinogen 6 mg/dL (Negative) Urine Leukocyte Esterase Negative /uL (Negative) Urine RBC 5 /hpf (0 - 3) Urine WBC 3 /hpf (0 - 3) Urine Squamous Epithelial Cells Few /hpf (<5) Urine Bacteria None seen /hpf (None Seen) Urine Mucus Few (None Seen) Urine Glucose 2+ mg/dL (Normal) H Microbiology Microbiology Date/Time Source Procedure Growth Status 06/07/24 14:54 Blood Blood Culture - Preliminary Staphylococcus aureus Resulted Labs and/or images reviewed: Labs reviewed by me, Image(s) reviewed by me Assessment/Plan Assessment/Plan Acute hypoxic respiratory failure: Oxygen by nasal cannula Bilateral multifocal pneumonia: Rocephin azithromycin Solu-Medrol Bacteremia with Gram-positive cocci in clusters: Possible contamination, we will start vancomycin and await final culture result Rapid flu test negative Ibeth test negative Acute chest pain troponin negative, 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 Yefri Haney appreciated Acute on chronic congestive heart failure exacerbation: Lasix, echo 70 % ejection fraction Acute COPD exacerbation Coronary artery disease D-dimer elevated 1.85 PE ruled out History of CABG Hypertension Hypercholesterolemia History of bladder cancer status post TURBT three years ago at [facility] Continue all home medications Time spent 55 minutes Patient is full code Advanced care planning time 20 minutes Continue all home medications Plan discussed with: Patient Date of Service: Jun 11, 2024 Billing Provider: PAULINO TOPETE MD Common Visit Codes: [id number] INP/OBS CARE(HIGH) PAULINO TOPETE MD Jun 11, 2024 11:01
[2024-06-11] MEDS ORDERED: VANCOMYCIN PER PHARMACY 0 MG IV SCH (11:15)
[2024-06-11] MEDS: VANCOMYCIN 1.25GM/250ML 250 ML IV ONE (18:43)
--- NOTE | 2024-06-11 23:02 | DVHPN2 ---
Progress Note - Dictate Date Seen: Jun 11, 2024 Medical Necessity Reason Pt with a Central, PICC or Fol: No Subjective Patient was seen and evaluated in follow up. No overnight events. Patient is complaining of SOB. Patient is on 2 LPM NC. Patient remains on IV antibiotic coverage. Telemetry reviewed. vital signs Vital Sign Date Time Temp Pulse Resp B/P (MAP) Pulse Ox O2 Delivery O2 Flow Rate FiO2 06/11/24 21:00 97.6 63 15 148/80 (102) 97 97.6 06/11/24 08:00 Nasal Cannula* 2 28 Total Intake and Output 06/10/24 06/10/24 06/11/24 15:00 23:00 07:00 Intake Total 800 ml 250 ml Output Total 1000 ml 700 ml Balance -200 ml -450 ml medications Current Medications Medications Dose Ordered Sig/Berkley Route Start Time Stop Time Status Last Admin Dose Admin Aspirin 81 mg DAILY PO 06/08/24 10:00 06/11/24 08:32 81 MG Methylprednisolone Sodium Succinate 40 mg Q8HR IV 06/07/24 22:00 06/11/24 21:38 40 MG Famotidine 20 mg Q12HR IV 06/07/24 22:00 06/11/24 21:33 20 MG Furosemide 20 mg DAILY IV 06/08/24 10:00 06/11/24 08:30 20 MG Hydralazine HCl 10 mg Q6HP PRN IV 06/07/24 20:45 Sodium Chloride 10 ml Q8HR IV 06/07/24 22:00 06/11/24 21:40 10 ML Acetaminophen/ Hydrocodone Bitart 1 tab Q4HP PRN PO 06/07/24 20:45 Ondansetron HCl 4 mg Q4HP PRN IV 06/07/24 20:45 Docusate Sodium 100 mg BIDPRN PRN PO 06/07/24 20:45 Acetaminophen 650 mg Q6HP PRN PO 06/07/24 20:45 06/08/24 03:26 650 MG Nitroglycerin 0.4 mg Q5MINP PRN SL 06/07/24 23:00 Morphine Sulfate 2 mg Q30M PRN IV 06/07/24 23:00 Ceftriaxone Sodium 50 ml @ 100 mls/hr DAILY@09 IV 06/09/24 09:00 06/11/24 08:31 100 MLS/HR Azithromycin 250 ml @ 125 mls/hr DAILY IV 06/09/24 10:00 06/11/24 11:11 125 MLS/HR Atorvastatin Calcium 80 mg HS PO 06/08/24 22:00 06/11/24 21:40 80 MG Finasteride 5 mg DAILY PO 06/09/24 10:00 06/11/24 08:31 5 MG Gabapentin 400 mg DAILY PO 06/09/24 10:00 06/11/24 08:31 400 MG Metoprolol Succinate 25 mg DAILY PO 06/09/24 10:00 06/11/24 08:32 25 MG Patient Own Medication 12.5 DAILY PO 06/09/24 10:00 06/11/24 08:32 12.5 Vancomycin HCl 0 ml @ 0 mls/hr UD IV 06/11/24 11:15 Vancomycin HCl 100 ml @ 200 mls/hr Q8H IV 06/12/24 06:00 objective GENERAL: Awake, alert, oriented. LUNGS: Clear. CARDIOVASCULAR: Heart sounds are good. ABDOMEN: Soft. laboratory and microbiology Laboratory Tests 06/08/24 06:21 Test 06/08/24 06:21 Range/Units Serum Glucose 172 H 74-106 mg/dL Problem List Acute hypoxic respiratory failure. Bilateral multifocal pneumonia. Acute chest pain. Acute on chronic congestive heart failure exacerbation. Acute COPD exacerbation. Coronary artery disease. History of CABG. Hypertension. Hypercholesterolemia. History of bladder cancer status post TURBT three years ago at [facility]. Assessment/Plan Continued all current supportive medical care. Morphine and [place] for pain management. Aspirin, Metoprolol, Lipitor. IV antibiotics as ordered. Diuretics with Lasix. IV Hydralazine for SBP > 150. Additional plan as per the hospital course. Dietary Evaluation Review Comments: Consider 2gNa CCHO-60 low fat low cholesterold diet if glu is consistantly high. Expected Outcomes/Goals: lab values WNL, weight stable Plan discussed with: Patient DEMETRI MOREJON MD Jun 11, 2024 23:02
[2024-06-12] VITALS (8 sets, daily range): BP systolic 105–125; BP diastolic 49–77; PULSE 51–64; RESP 15–22; TEMP 97.5–98.4; O2SAT 91–100
[2024-06-12] MEDS: VANCOMYCIN 500mg/100mL 100 ML IV SCH (05:44)
[2024-06-12 08:10] LABS: Basophils # (auto) 0 10 ^3/uL (0-0.2); Basophils % (auto) 0.1 % (0.0-2.0); Eosinophils # (auto) 0 10 ^3/uL (0-0.8); Hematocrit 36.9 % (41.0-53.0); Hemoglobin 12.4 g/dL (13.5-17.5); Lymphocytes # (auto) 0.8 10 ^3/uL (0.4-5.4); Lymphocytes % (auto) 6.6 % (10.0-50.0); Mean Corpuscular Hemoglobin 29.6 pg (28.0-32.0); Mean Corpuscular Hgb Conc. 33.5 g/dL (32.0-36.0); Mean Corpuscular Volume 88.3 fL (80.0-100.0); Monocytes # (auto) 0.3 10 ^3/uL (0-1.3); Monocytes % (auto) 2.6 % (0.0-12.0); Neutrophils # (auto) 10.4 10 ^3/uL (1.6-8.6); Neutrophils % (auto) 90.7 % (37.0-80.0); Nucleated Red Blood Cells % 0.3 %; Platelet Count (auto) 268 10^3/uL (140-450); Red Blood Cells 4.18 10^6/uL (4.5-5.90); Red Cell Distribution Width 13.6 % (11.8-14.3); White Blood Cell 11.4 10^3/uL (4.4-10.8)
[2024-06-12 09:05] LABS: Platelet Estimate Adequate
--- NOTE | 2024-06-12 11:24 | DVHPN2 ---
Reviewed: Care Plan, H&P, Labs, Medications, Previous Orders, Radiology Changes from previous H/P or p: No Changes Eyes: No Pain, No Vision change, No Conjunctivae inflammation, No Eyelid inflammation, No Other, No Redness ENT: No Ear pain, No Ear discharge, No Nose pain, No Nose discharge, No Nose congestion, No Mouth pain, No Mouth swelling, No Throat pain, No Throat swelling, No Other Cardiovascular: Chest Pain; No Palpitations, No Orthopnea, No Paroxysmal Noc. Dyspnea, No Edema, No Lt Headedness, No Other Respiratory: Cough; No Dry; Shortness of breath; No SOB with excertion, No Wheezing, No Hemoptysis, No Pleuritic Pain, No Sputum, No Other Gastrointestinal: No Nausea, No Vomiting, No Abdominal Pain, No Diarrhea, No Constipation, No Melena, No Hematochezia, No Other Genitourinary: No Dysuria, No Frequency, No Incontinence, No Hematuria, No Retention, No Other Musculoskeletal: No other, No neck pain, No shoulder pain, No arm pain, No back pain, No hand pain, No leg pain, No foot pain Skin: No Rash, No Lesions, No Jaundice, No Bruising, No Other Objective Vitals Vital Signs Date Time Temp Pulse Resp B/P (MAP) Pulse Ox O2 Delivery O2 Flow Rate FiO2 06/12/24 10:47 105/49 06/12/24 10:00 56 06/12/24 09:00 97.5 17 100 97.5 06/11/24 20:00 Nasal Cannula* 2 28 Intake/Output Intake and Output 06/12/24 07:00 Intake Total 3100 ml Output Total 1500 ml Balance 1600 ml Intake Oral 3100 ml Output Urine Total 1500 ml # Bowel Movements 1 Medications Current Medications Medications Dose Ordered Sig/Berkley Route Start Time Stop Time Status Last Admin Dose Admin Aspirin 81 mg DAILY PO 06/08/24 10:00 06/12/24 10:46 81 MG Methylprednisolone Sodium Succinate 40 mg Q8HR IV 06/07/24 22:00 06/12/24 05:40 40 MG Famotidine 20 mg Q12HR IV 06/07/24 22:00 06/12/24 10:47 20 MG Furosemide 20 mg DAILY IV 06/08/24 10:00 06/12/24 10:47 20 MG Hydralazine HCl 10 mg Q6HP PRN IV 06/07/24 20:45 Sodium Chloride 10 ml Q8HR IV 06/07/24 22:00 06/12/24 05:40 10 ML Acetaminophen/ Hydrocodone Bitart 1 tab Q4HP PRN PO 06/07/24 20:45 Ondansetron HCl 4 mg Q4HP PRN IV 06/07/24 20:45 Docusate Sodium 100 mg BIDPRN PRN PO 06/07/24 20:45 Acetaminophen 650 mg Q6HP PRN PO 06/07/24 20:45 06/08/24 03:26 650 MG Nitroglycerin 0.4 mg Q5MINP PRN SL 06/07/24 23:00 Morphine Sulfate 2 mg Q30M PRN IV 06/07/24 23:00 Ceftriaxone Sodium 50 ml @ 100 mls/hr DAILY@09 IV 06/09/24 09:00 06/12/24 10:45 100 MLS/HR Azithromycin 250 ml @ 125 mls/hr DAILY IV 06/09/24 10:00 06/11/24 11:11 125 MLS/HR Atorvastatin Calcium 80 mg HS PO 06/08/24 22:00 06/11/24 21:40 80 MG Finasteride 5 mg DAILY PO 06/09/24 10:00 06/12/24 10:46 5 MG Gabapentin 400 mg DAILY PO 06/09/24 10:00 06/12/24 10:46 400 MG Metoprolol Succinate 25 mg DAILY PO 06/09/24 10:00 06/11/24 08:32 25 MG Patient Own Medication 12.5 DAILY PO 06/09/24 10:00 06/12/24 10:48 12.5 Vancomycin HCl 0 ml @ 0 mls/hr UD IV 06/11/24 11:15 Vancomycin HCl 100 ml @ 200 mls/hr Q8H IV 06/12/24 06:00 06/12/24 05:44 200 MLS/HR Laboratory Results Laboratory Tests 06/08/24 06:21 06/12/24 06:56 Urinalysis Test 06/07/24 17:30 Urine Color Light-orange (Yellow) Urine Clarity Clear (Clear) Urine pH 6.5 (5.0-9.0) Urine Specific [place] 1.031 (1.001-1.035) Urine Protein 1+ (Negative) H Urine Ketones Negative (Negative) Urine Blood Negative /uL (Negative) Urine Nitrite Negative (Negative) Urine Bilirubin Negative (Negative) Urine Urobilinogen 6 mg/dL (Negative) Urine Leukocyte Esterase Negative /uL (Negative) Urine RBC 5 /hpf (0 - 3) Urine WBC 3 /hpf (0 - 3) Urine Squamous Epithelial Cells Few /hpf (<5) Urine Bacteria None seen /hpf (None Seen) Urine Mucus Few (None Seen) Urine Glucose 2+ mg/dL (Normal) H Microbiology Microbiology Date/Time Source Procedure Growth Status 06/07/24 14:54 Blood Blood Culture - Preliminary Staphylococcus aureus Resulted Labs and/or images reviewed: Labs reviewed by me, Image(s) reviewed by me Assessment/Plan Assessment/Plan Acute hypoxic respiratory failure: Oxygen by nasal cannula Bilateral multifocal pneumonia: Rocephin azithromycin Solu-Medrol Bacteremia with staph aureus continue vancomycin and await final culture result Rapid flu test negative Ibeth test negative Acute chest pain troponin negative, 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 Yefri Haney appreciated Acute on chronic congestive heart failure exacerbation: Lasix, echo 70 % ejection fraction Acute COPD exacerbation Coronary artery disease D-dimer elevated 1.85 PE ruled out History of CABG Hypertension Hypercholesterolemia History of bladder cancer status post TURBT three years ago at [facility] Continue all home medications Time spent 55 minutes Patient is full code Advanced care planning time 20 minutes Continue all home medications Patient Wants to go home but I advised the patient about the pending blood culture result and he agrees to stay. Plan discussed with: Patient My Orders Orders - PAULINO TOPETE MD Procedure Category Date Status Time Vancomycin 500mg/100ml PHA 06/12/24 In Process 06:00 Vancomycin,Trough LAB 06/13/24 Verified 05:00 Vancomycin Per SARAH 06/11/24 In Process Pharmacy Protoc 14:05 Blood Culture DANA 06/12/24 Verified 11:22 Date of Service: Jun 12, 2024 Billing Provider: PAULINO TOPETE MD Common Visit Codes: [id number] INP/OBS CARE(HIGH) PAULINO TOPETE MD Jun 12, 2024 11:24
--- NOTE | 2024-06-12 21:36 | DVHPN2 ---
Progress Note - Dictate Date Seen: Jun 12, 2024 Medical Necessity Reason Pt with a Central, PICC or Fol: No Subjective Patient was seen and evaluated in follow up. Patient is complaining of SOB, remains on 2 LPM NC. WBC 11.4. H&H stable. Telemetry reviewed. vital signs Vital Sign Date Time Temp Pulse Resp B/P (MAP) Pulse Ox O2 Delivery O2 Flow Rate FiO2 06/12/24 20:52 98.0 64 17 111/57 (75) 91 98.0 06/12/24 20:00 Nasal Cannula* 2 28 Total Intake and Output 06/11/24 06/11/24 06/12/24 15:00 23:00 07:00 Intake Total 1100 ml 2000 ml Output Total 1500 ml Balance -400 ml 2000 ml medications Current Medications Medications Dose Ordered Sig/Berkley Route Start Time Stop Time Status Last Admin Dose Admin Aspirin 81 mg DAILY PO 06/08/24 10:00 06/12/24 10:46 81 MG Methylprednisolone Sodium Succinate 40 mg Q8HR IV 06/07/24 22:00 06/12/24 15:35 40 MG Famotidine 20 mg Q12HR IV 06/07/24 22:00 06/12/24 10:47 20 MG Furosemide 20 mg DAILY IV 06/08/24 10:00 06/12/24 10:47 20 MG Hydralazine HCl 10 mg Q6HP PRN IV 06/07/24 20:45 Sodium Chloride 10 ml Q8HR IV 06/07/24 22:00 06/12/24 15:35 10 ML Acetaminophen/ Hydrocodone Bitart 1 tab Q4HP PRN PO 06/07/24 20:45 Ondansetron HCl 4 mg Q4HP PRN IV 06/07/24 20:45 Docusate Sodium 100 mg BIDPRN PRN PO 06/07/24 20:45 Acetaminophen 650 mg Q6HP PRN PO 06/07/24 20:45 06/08/24 03:26 650 MG Nitroglycerin 0.4 mg Q5MINP PRN SL 06/07/24 23:00 Morphine Sulfate 2 mg Q30M PRN IV 06/07/24 23:00 Ceftriaxone Sodium 50 ml @ 100 mls/hr DAILY@09 IV 06/09/24 09:00 06/12/24 10:45 100 MLS/HR Azithromycin 250 ml @ 125 mls/hr DAILY IV 06/09/24 10:00 06/12/24 11:00 125 MLS/HR Atorvastatin Calcium 80 mg HS PO 06/08/24 22:00 06/11/24 21:40 80 MG Finasteride 5 mg DAILY PO 06/09/24 10:00 06/12/24 10:46 5 MG Gabapentin 400 mg DAILY PO 06/09/24 10:00 06/12/24 10:46 400 MG Metoprolol Succinate 25 mg DAILY PO 06/09/24 10:00 06/11/24 08:32 25 MG Patient Own Medication 12.5 DAILY PO 06/09/24 10:00 06/12/24 10:48 12.5 Vancomycin HCl 0 ml @ 0 mls/hr UD IV 06/11/24 11:15 Vancomycin HCl 100 ml @ 200 mls/hr Q8H IV 06/12/24 06:00 06/12/24 15:36 200 MLS/HR objective GENERAL: Awake, alert, oriented. LUNGS: Clear. CARDIOVASCULAR: Heart sounds are good. ABDOMEN: Soft. laboratory and microbiology Laboratory Tests 06/12/24 06:56 06/08/24 06:21 Test 06/08/24 06:21 Range/Units Serum Glucose 172 H 74-106 mg/dL Problem List Acute hypoxic respiratory failure. Bilateral multifocal pneumonia. Acute chest pain. Acute on chronic congestive heart failure exacerbation. Acute COPD exacerbation. Coronary artery disease. History of CABG. Hypertension. Hypercholesterolemia. History of bladder cancer status post TURBT three years ago at [facility]. Assessment/Plan Continued all current supportive medical care. Morphine and Garita for pain management. Aspirin, Metoprolol, Lipitor. IV antibiotics as ordered. Diuretics with Lasix. IV Hydralazine for SBP > 150. Additional plan as per the hospital course. Dietary Evaluation Review Comments: Consider 2gNa CCHO-60 low fat low cholesterold diet if glu is consistantly high. Expected Outcomes/Goals: lab values WNL, weight stable Plan discussed with: Patient DEMETRI MOREJON MD Jun 12, 2024 21:36
[2024-06-13 00:50] VITALS: BP 121/59; PULSE 48; RESP 16; TEMP 98; O2SAT 93
[2024-06-13 05:00] VITALS: BP 130/53; PULSE 60; RESP 17; TEMP 98.4; O2SAT 93
[2024-06-13 06:30] LABS: Basophils # (auto) 0 10 ^3/uL (0-0.2); Basophils % (auto) 0.1 % (0.0-2.0); Eosinophils # (auto) 0 10 ^3/uL (0-0.8); Hemoglobin 12.8 g/dL (13.5-17.5); Lymphocytes # (auto) 0.6 10 ^3/uL (0.4-5.4); Lymphocytes % (auto) 4.9 % (10.0-50.0); Mean Corpuscular Hemoglobin 29.4 pg (28.0-32.0); Mean Corpuscular Hgb Conc. 33.6 g/dL (32.0-36.0); Mean Corpuscular Volume 87.7 fL (80.0-100.0); Monocytes # (auto) 0.5 10 ^3/uL (0-1.3); Monocytes % (auto) 4.2 % (0.0-12.0); Neutrophils % (auto) 90.8 % (37.0-80.0); Platelet Count (auto) 281 10^3/uL (140-450); Red Blood Cells 4.34 10^6/uL (4.5-5.90); Red Cell Distribution Width 13.7 % (11.8-14.3); White Blood Cell 13.2 10^3/uL (4.4-10.8)
[2024-06-13 08:00] VITALS: PULSE 61
[2024-06-13 08:51] VITALS: BP 118/61; PULSE 62; RESP 16; TEMP 98; O2SAT 95
--- NOTE | 2024-06-13 10:24 | DVHPN2 ---
Reviewed: Care Plan, H&P, Labs, Medications, Previous Orders, Radiology Changes from previous H/P or p: No Changes Eyes: No Pain, No Vision change, No Conjunctivae inflammation, No Eyelid inflammation, No Other, No Redness ENT: No Ear pain, No Ear discharge, No Nose pain, No Nose discharge, No Nose congestion, No Mouth pain, No Mouth swelling, No Throat pain, No Throat swelling, No Other Cardiovascular: Chest Pain; No Palpitations, No Orthopnea, No Paroxysmal Noc. Dyspnea, No Edema, No Lt Headedness, No Other Respiratory: Cough; No Dry; Shortness of breath; No SOB with excertion, No Wheezing, No Hemoptysis, No Pleuritic Pain, No Sputum, No Other Gastrointestinal: No Nausea, No Vomiting, No Abdominal Pain, No Diarrhea, No Constipation, No Melena, No Hematochezia, No Other Genitourinary: No Dysuria, No Frequency, No Incontinence, No Hematuria, No Retention, No Other Musculoskeletal: No other, No neck pain, No shoulder pain, No arm pain, No back pain, No hand pain, No leg pain, No foot pain Skin: No Rash, No Lesions, No Jaundice, No Bruising, No Other Objective Vitals Vital Signs Date Time Temp Pulse Resp B/P (MAP) Pulse Ox O2 Delivery O2 Flow Rate FiO2 06/13/24 09:14 63 118/61 06/13/24 08:51 98.0 16 95 98.0 06/12/24 20:00 Nasal Cannula* 2 28 Intake/Output Intake and Output 06/13/24 07:00 Intake Total 1628 ml Output Total 2201 ml Balance -573 ml Intake Oral 1228 ml IV Total 400 ml Output Urine Total 2200 ml Stool Total 1 ml Medications Current Medications Medications Dose Ordered Sig/Berkley Route Start Time Stop Time Status Last Admin Dose Admin Aspirin 81 mg DAILY PO 06/08/24 10:00 06/13/24 09:12 81 MG Methylprednisolone Sodium Succinate 40 mg Q8HR IV 06/07/24 22:00 06/13/24 06:51 40 MG Famotidine 20 mg Q12HR IV 06/07/24 22:00 06/13/24 09:13 20 MG Furosemide 20 mg DAILY IV 06/08/24 10:00 06/13/24 09:13 20 MG Hydralazine HCl 10 mg Q6HP PRN IV 06/07/24 20:45 Sodium Chloride 10 ml Q8HR IV 06/07/24 22:00 06/13/24 06:00 10 ML Acetaminophen/ Hydrocodone Bitart 1 tab Q4HP PRN PO 06/07/24 20:45 Ondansetron HCl 4 mg Q4HP PRN IV 06/07/24 20:45 Docusate Sodium 100 mg BIDPRN PRN PO 06/07/24 20:45 Acetaminophen 650 mg Q6HP PRN PO 06/07/24 20:45 06/08/24 03:26 650 MG Nitroglycerin 0.4 mg Q5MINP PRN SL 06/07/24 23:00 Morphine Sulfate 2 mg Q30M PRN IV 06/07/24 23:00 Ceftriaxone Sodium 50 ml @ 100 mls/hr DAILY@09 IV 06/09/24 09:00 06/13/24 09:12 100 MLS/HR Azithromycin 250 ml @ 125 mls/hr DAILY IV 06/09/24 10:00 06/12/24 11:00 125 MLS/HR Atorvastatin Calcium 80 mg HS PO 06/08/24 22:00 06/12/24 23:13 80 MG Finasteride 5 mg DAILY PO 06/09/24 10:00 06/13/24 09:14 5 MG Gabapentin 400 mg DAILY PO 06/09/24 10:00 06/13/24 09:12 400 MG Metoprolol Succinate 25 mg DAILY PO 06/09/24 10:00 06/13/24 09:14 25 MG Patient Own Medication 12.5 DAILY PO 06/09/24 10:00 06/13/24 09:13 12.5 Vancomycin HCl 0 ml @ 0 mls/hr UD IV 06/11/24 11:15 Vancomycin HCl 100 ml @ 200 mls/hr Q8H IV 06/12/24 06:00 06/13/24 06:54 200 MLS/HR Laboratory Results Laboratory Tests 06/08/24 06:21 06/13/24 06:04 Urinalysis Test 06/07/24 17:30 Urine Color Light-orange (Yellow) Urine Clarity Clear (Clear) Urine pH 6.5 (5.0-9.0) Urine Specific [place] 1.031 (1.001-1.035) Urine Protein 1+ (Negative) H Urine Ketones Negative (Negative) Urine Blood Negative /uL (Negative) Urine Nitrite Negative (Negative) Urine Bilirubin Negative (Negative) Urine Urobilinogen 6 mg/dL (Negative) Urine Leukocyte Esterase Negative /uL (Negative) Urine RBC 5 /hpf (0 - 3) Urine WBC 3 /hpf (0 - 3) Urine Squamous Epithelial Cells Few /hpf (<5) Urine Bacteria None seen /hpf (None Seen) Urine Mucus Few (None Seen) Urine Glucose 2+ mg/dL (Normal) H Microbiology Microbiology Date/Time Source Procedure Growth Status 06/07/24 14:54 Blood Blood Culture - Preliminary Staphylococcus aureus Resulted Labs and/or images reviewed: Labs reviewed by me, Image(s) reviewed by me Assessment/Plan Assessment/Plan Acute hypoxic respiratory failure: Resolved now on room air Bilateral multifocal pneumonia: Rocephin azithromycin Solu-Medrol Bacteremia with staph aureus possible contaminant Rapid flu test negative Ibeth test negative Acute chest pain troponin negative, consult for organ pipe maker metal Dr. Yefri Haney appreciated Acute on chronic congestive heart failure exacerbation: Lasix, echo 70 % ejection fraction Acute COPD exacerbation Coronary artery disease D-dimer elevated 1.85 PE ruled out History of CABG Hypertension Hypercholesterolemia History of bladder cancer status post TURBT three years ago at [facility] Continue all home medications Time spent 55 minutes Patient is full code Advanced care planning time 20 minutes Continue all home medications Patient Wants to go home but I advised the patient about the pending blood culture result and he agrees to stay. Plan discussed with: Patient My Orders Orders - PAULINO TOPETE MD Procedure Category Date Status Time Blood Culture DANA 06/12/24 In Process 11:22 Date of Service: Jun 13, 2024 Billing Provider: PAULINO TOPETE MD Common Visit Codes: [id number] INP/OBS CARE(HIGH) PAULINO TPOETE MD Jun 13, 2024 10:24
--- NOTE | 2024-06-13 10:30 | DVHDS2 ---
Discharge Summary Date of Admission Jun 07, 2024 at 22:54 Date of Discharge: Jun 13, 2024 Admitting Diagnosis Pneumoniae Wounds: None Labs/Diagnostic Data: Laboratory Results Test 06/13/24 06:04 06/12/24 06:56 06/08/24 17:17 06/08/24 13:30 White Blood Count 13.2 10^3/uL (4.4-10.8) Red Blood Count 4.34 10^6/uL (4.5-5.90) Hemoglobin 12.8 g/dL (13.5-17.5) Hematocrit 38.0 % (41.0-53.0) Mean Corpuscular Volume 87.7 fL (80.0-100.0) Mean Corpuscular Hemoglobin 29.4 pg (28.0-32.0) Mean Corpuscular Hemoglobin Concent 33.6 g/dL (32.0-36.0) Red Cell Distribution Width 13.7 % (11.8-14.3) Platelet Count 281 10^3/uL (140-450) Mean Platelet Volume 7.5 fL (6.9-10.8) Neutrophils (%) (Auto) 90.8 % (37.0-80.0) Lymphocytes (%) (Auto) 4.9 % (10.0-50.0) Monocytes (%) (Auto) 4.2 % (0.0-12.0) Eosinophils (%) (Auto) 0.0 % (0.0-7.0) Basophils (%) (Auto) 0.1 % (0.0-2.0) Neutrophils # (Auto) 12.0 10 ^3/uL (1.6-8.6) Lymphocytes # (Auto) 0.6 10 ^3/uL (0.4-5.4) Monocytes # (Auto) 0.5 10 ^3/uL (0-1.3) Eosinophils # (Auto) 0 10 ^3/uL (0-0.8) Basophils # (Auto) 0 10 ^3/uL (0-0.2) Nucleated Red Blood Cells 0.0 % Creatinine 0.76 mg/dL (0.700-1.30) Glomerular Filtration Rate Calc 88 mL/min (>90) Vancomycin Level Trough 12.3 ug/mL (5-10) Platelet Estimate Adequate [place] Cells Many Influenza Type A Antigen Negative (Negative) Influenza Type B Antigen Negative (Negative) SARS-CoV-2 Antigen (Rapid) Negative (NEGATIVE) D-Dimer, Quantitative 1.85 mg/L FEU (0.0-0.49) Test 06/08/24 06:21 06/07/24 17:30 06/07/24 15:15 06/07/24 14:54 Sodium Level 140 mmol/L (136-145) Potassium Level 3.5 mmol/L (3.5-5.1) Chloride Level 109 mmol/L (98-107) Carbon Dioxide Level 23 mmol/L (20-31) Anion Gap 8 (5-15) Blood Urea Nitrogen 13 mg/dL (9-23) BUN/Creatinine Ratio 22.0 (10.0-20.0) Serum Glucose 172 mg/dL (74-106) Calcium Level 9.1 mg/dL (8.7-10.4) Total Bilirubin 0.9 mg/dL (0.2-1.0) Aspartate Amino Transferase (AST) 26 U/L (13-40) Alanine Aminotransferase (ALT) 28 U/L (7-40) Alkaline Phosphatase 91 U/L (46-116) Total Protein 5.8 g/dL (5.7-8.2) Albumin 3.3 g/dL (3.2-4.8) Urine Color Light-orange (Yellow) Urine Clarity Clear (Clear) Urine pH 6.5 (5.0-9.0) Urine Specific [place] 1.031 (1.001-1.035) Urine Protein 1+ (Negative) Urine Ketones Negative (Negative) Urine Blood Negative /uL (Negative) Urine Nitrite Negative (Negative) Urine Bilirubin Negative (Negative) Urine Urobilinogen 6 mg/dL (Negative) Urine Leukocyte Esterase Negative /uL (Negative) Urine RBC 5 /hpf (0 - 3) Urine WBC 3 /hpf (0 - 3) Urine Squamous Epithelial Cells Few /hpf (<5) Urine Bacteria None seen /hpf (None Seen) Urine Mucus Few (None Seen) Urine Glucose 2+ mg/dL (Normal) Troponin I High Sensitivity 11 ng/L (</=54) Lactic Acid Level 1.5 mmol/L (0.4-2.0) Test 06/07/24 12:29 Hemoglobin A1c 6.1 % A1C (<5.7) B-Type Natriuretic Peptide 448.07 pg/mL (0-100) Other Laboratory Tests 06/13/24 06:04 06/08/24 06:21 Brief Hx & Hospital Course: 83-year-old male with a history of COPD coronary artery disease CABG hypertension hypercholesterolemia bladder cancer status post TURBT three years ago at [facility] came in for shortness of breaths found to have bilateral multifocal pneumonia treated with Rocephin azithromycin Solu-Medrol flu test negative Ibeth test negative also complained of chest pain troponin all negative consult by production solderer Dr. Haney Echo 70 percent ejection fraction treated with Lasix for CHF. At the time of discharge patient on room air afebrile stable vital signs and wants to go home One set of blood cultures came positive for staph possible contamination patient is afebrile on room air . Being discharged home on Levaquin for pneumonia Consults/Reason for consult None Operations or Procedures None Condition at Discharge: Fair Final Diagnosis/Problems List Acute hypoxic respiratory failure: Resolved now on room air Bilateral multifocal pneumonia: Rocephin azithromycin Solu-Medrol Bacteremia with staph aureus possible contaminant Rapid flu test negative Ibeth test negative Acute chest pain troponin negative, consult for production solderer Dr. Yefri Haney appreciated Acute on chronic congestive heart failure exacerbation: Lasix, echo 70 % ejection fraction Acute COPD exacerbation Coronary artery disease D-dimer elevated 1.85 PE ruled out History of CABG Hypertension Hypercholesterolemia History of bladder cancer status post TURBT three years ago at [facility] Discharge Disposition: Home Discharge Instruct/Medications Diet: Cardiac 2g Na,low cholest Activity: Light activity Follow Up/Referral: Continue all your previous home medications Follow up with your primary Dr at the [facility] Medications: Levaquin Transmitted to [facility] 39 (Time Taken for discharge summary 39 minutes) Discharge Statement: "Patient was advised to return to the ER or call 911 if any headaches, dizziness, shortness of breath, chest pain, abdominal pain, bleeding, fevers, or worsening of medical condition. Patient was counseled about treatment plan, medications, possible side effects, patientverbalized understanding. All questions were answered to the best of my ability. This discharge took greater then 30 minutes in planning, reviewing documentation, counseling the patient, and discussing with other team members." ASSESSMENT ASSESSMENT Hospital Course Recovered Assessment Acute hypoxic respiratory failure: Resolved now on room air Bilateral multifocal pneumonia: Rocephin azithromycin Solu-Medrol Bacteremia with staph aureus possible contaminant Rapid flu test negative Ibeth test negative Acute chest pain troponin negative, consult for production solderer Dr. Yefri Haney appreciated Acute on chronic congestive heart failure exacerbation: Lasix, echo 70 % ejection fraction Acute COPD exacerbation Coronary artery disease D-dimer elevated 1.85 PE ruled out History of CABG Hypertension Hypercholesterolemia History of bladder cancer status post TURBT three years ago at [facility] Date of Service: Jun 13, 2024 Billing Provider: PAULINO TOPETE MD Common Visit Codes: [id number] DISCH DAY >30min PAULINO TOPETE MD Jun 13, 2024 10:30
[2024-06-13 10:41] VITALS: BP 118/61; PULSE 63; TEMP 36.7
--- NOTE | 2024-06-13 19:07 | DVHPN2 ---
Progress Note - Dictate Date Seen: Jun 13, 2024 Medical Necessity Reason Pt with a Central, PICC or Fol: No Subjective Patient was seen and evaluated in follow up. Patient has no new complaints at this time. Patient denies any cardiac symptoms. Patient is cardiac stable for discharge. Telemetry reviewed. vital signs Vital Sign Date Time Temp Pulse Resp B/P (MAP) Pulse Ox O2 Delivery O2 Flow Rate FiO2 06/13/24 10:41 36.7 63 06/13/24 09:14 118/61 06/13/24 08:51 16 95 06/13/24 08:00 Room Air* 0 21 Total Intake and Output 06/12/24 06/12/24 06/13/24 15:00 23:00 07:00 Intake Total 300 ml 1008 ml 320 ml Output Total 250 ml 1400 ml 551 ml Balance 50 ml -392 ml -231 ml objective GENERAL: Awake, alert, oriented. LUNGS: Clear. CARDIOVASCULAR: Heart sounds are good. ABDOMEN: Soft. laboratory and microbiology Laboratory Tests 06/13/24 06:04 06/08/24 06:21 Test 06/08/24 06:21 Range/Units Serum Glucose 172 H 74-106 mg/dL Problem List Acute hypoxic respiratory failure. Bilateral multifocal pneumonia. Acute chest pain. Acute on chronic congestive heart failure exacerbation. Acute COPD exacerbation. Coronary artery disease. History of CABG. Hypertension. Hypercholesterolemia. History of bladder cancer status post TURBT three years ago at [facility]. Assessment/Plan Continued all current supportive medical care. Morphine and [place] for pain management. Aspirin, Metoprolol, Lipitor. IV antibiotics as ordered. Diuretics with Lasix. IV Hydralazine for SBP > 150. Additional plan as per the hospital course. Dietary Evaluation Review Comments: Consider 2gNa CCHO-60 low fat low cholesterold diet if glu is consistantly high. Expected Outcomes/Goals: lab values WNL, weight stable Plan discussed with: Patient DEMETRI MOREJON MD Jun 13, 2024 14:23
[2024-06-14] MEDS ORDERED: LEVO500T91 PO (10:58)
--- NOTE | 2024-06-14 12:49 | ECG ---
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
--- NOTE | 2024-06-15 15:23 | ECG ---
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
== END 2024-06-13 12:10 | disposition home or self-care (01) | DRG 291 ==
LOC: EDBD 12:14 → ER 12:28 → TELE-WESTW 22:54 → TELE 22:54 → TELE-WESTW 23:53
PROVIDERS: ADMIT Family Medicine; ATTEND Family Medicine
DX: I11.0 Hypertensive heart disease with heart failure (principal); J18.9 Pneumonia, unspecified organism; J96.01 Acute respiratory failure with hypoxia; I24.9 Acute ischemic heart disease, unspecified; J44.1 Chronic obstructive pulmonary disease with (acute) exacerbation; J44.0 Chronic obstructive pulmonary disease with (acute) lower respiratory infection; R78.81 Bacteremia; F17.210 Nicotine dependence, cigarettes, uncomplicated; Z20.822 Contact with and (suspected) exposure to COVID-19; E87.6 Hypokalemia; I50.9 Heart failure, unspecified; E78.00 Pure hypercholesterolemia, unspecified; K80.20 Calculus of gallbladder without cholecystitis without obstruction; I25.10 Atherosclerotic heart disease of native coronary artery without angina pectoris; R73.9 Hyperglycemia, unspecified; J43.2 Centrilobular emphysema; Z95.1 Presence of aortocoronary bypass graft; Z85.51 Personal history of malignant neoplasm of bladder; Z79.899 Other long term (current) drug therapy
CPT/HCPCS: 36415; 71045; 71275; 80053; 80202; 81001; 82565; 83036; 83605; 83880; 84484; 85025; 85379; 87040; 87077; 87186; 87426; 87804; 93005; 93306; G0378; J1956; J3480; J3490

== ENCOUNTER 2024-12-03 09:23 | Inpatient (IN) | payer OTHER, MEDICARE ==
[~2024-12-03] VITALS: Ht 170.2 cm; Wt 53.2 kg
[~2024-12-03 09:23] MED LIST: ATOR-47 PO; FINA5TAB4 PO; GABA250S7 PO; LEVO500T91 PO; METO25TA93 PO; NAP500T PO
--- NOTE | 2024-12-03 09:32 | ECG ---
[facility] Test Date: 2024-12-03 Test Time: 09:26:15 Pat Name: LEONOR BAE Department: ED Room: Gender: M Manager Channel: gp : 1940 Requested By: ANDIE VILLAVICENCIO Order Number: [id number] Reading MD: Measurements Intervals [place] Rate: 157 P: 0 NC: 0 QRS: 52 QRSD: 87 T: -57 QT: 291 QTc: 471 Interpretive Statements Atrial fibrillation with rapid V-rate Low voltage, precordial leads RSR' in V1 or V2, right VCD or RVH Please click the below link to view image of tracing.
[2024-12-03 09:40] VITALS: PULSE 149; RESP 16; TEMP 97.7; O2SAT 87
[2024-12-03] MEDS: SODIUM CHLORIDE 0.9% 1,000 ML IV ONE ×3 (09:50→14:19)
--- NOTE | 2024-12-03 10:13 | ED.PDOC ---
SOB-HPI HPI Comments 84 y/o M, BIBA, with PMHx of COPD, CHF, HTN, and HLD presents to the ED for CC of shortness of breath. EMS reports, patient is coming from home where he c/o shortness of breath with an associated non-productive cough [id number]. EMS relays, upon arrival to scene patient was found to be hypoxic stating in the 80's on R.A and tachycardiac with an irregular heart rate in the 150's. In route to the ED, patient was given x1 breathing Tx and saturation levels improved to the low 90's. Patient denies recent fever, chills, body-aches, fatigue, or weakness. No other symptoms or modifying factors present at this time. Chief Complaint: Shortness of Breath Time Seen by MD: 09:47 Primary Care Provider: janet Reviewed notes: Nurses Notes, Garden Labourer Notes, Medications, Allergies Information Source: Patient, Emergency Med Personnel Mode of Arrival: EMS Severity: Moderate Timing: Weeks Duration: Since onset Context: At Rest PE Risk Factors: None History of: COPD, CHF Prehospital treatment: Breathing Tx Modifying Factors: Nothing Associated Signs and Symptoms: Cough Past Medical History PAST MEDICAL HISTORY: CAD, Cancer, CHF, COPD, High Lipids, HTN Surgical History: CABG, Tonsillectomy Family History Family History: Unknown Social History Smoker: Cigarettes Alcohol: Denies ETOH Use Drugs: Denies Drug Use Lives In: Home Constitutional: denies: chills, diaphoresis, fatigue, fever, malaise, sweats, weakness, others EENTM: denies: blurred vision, double vision, ear bleeding, ear discharge, ear drainage, ear pain, ear ringing, eye pain, eye redness, hearing loss, mouth pain, mouth swelling, nasal discharge, nose bleeding, nose congestion, nose pain, photophobia, tearing, throat pain, throat swelling, voice changes, others Respiratory: reports: cough, shortness of breath; denies: hemoptysis, orthopnea, SOB at rest, SOB with excertion, stridor, wheezing, others Cardiovascular: denies: chest pain, dizzy spells, diaphoresis, Dyspnea on exertion, edema, irregular heart beat, left arm pain, lightheadedness, palpitations, PND, syncope, others Gastrointestinal: denies: abdomen distended, abdominal pain, blood streaked bowels, constipated, diarrhea, dysphagia, difficulty swallowing, hematemesis, melena, nausea, poor appetite, poor fluid intake, rectal bleeding, rectal pain, vomiting, others Genitourinary: denies: burning, dysuria, flank pain, frequency, hematuria, incontinence, penile discharge, penile sore, pain, testicle pain, testicle swelling, urgency, others Neurological: denies: dizziness, fainting, headache, left sided numbness, left sided weakness, numbness, paresthesia, pre-existing deficit, right sided numbness, right sided weakness, seizure, speech problems, tingling, tremors, wea kness, others Musculoskeletal: denies: back pain, gout, joint pain, joint swelling, muscle pain, muscle stiffness, neck pain, others Integumetry: denies: bruises, change in color, change in hair/nails, dryness, l aceration, lesions, lumps, rash, wounds, others Allergic/Immunocompromised: denies: Difficulty Healing, Frequent Infections, Hives, Itching, others Hematologic/Lymphatic: denies: anemia, blood clots, easy bleeding, easy bruising, swollen glands, others Endocrine: denies: excessive hunger, excessive sweating, excessive thirst, excessive urination, flushing, intolerance to cold, intolerance to heat, unexplained weight gain, unexplained weight loss, others Psychiatric: denies: anxiety, bipolar disorder, depression, hopeless, panic disorder, schizophrenia, sleepless, suicidal, others All Other Systems: Reviewed and Negative Physical Exam General Appearance: No Apparent Distress, Normal HEENT: Normal ENT Inspection, Pharynx Normal Neck: Full Range of Motion, Non-Tender, Normal, Normal Inspection Respiratory: Chest Non-Tender, Lungs Clear, No Accessory Muscle Use, No Respiratory Distress, Normal Breath Sounds, Other (non-productive cough) Cardiovascular: No Edema, No Murmur, No Gallop, Normal Peripheral Pulses, Tachycardia, Other (irregular heart rate) Breast Exam: Deferred Gastrointestinal: No Organomegaly, Non Tender, No Pulsatile Mass, Normal Bowel Sounds, Soft Genitalia: Deferred Pelvic: Deferred Rectal: Deferred Extremities: No calf tenderness, Normal capillary refill, Normal inspection, Normal range of motion, Non-tender, No pedal edema Musculoskeletal : Apperance: Normal Neurologic: Alert, control officer II-XII nml as Tested, No Motor Deficits, Normal Affect, Normal Mood, No Sensory Deficits Cerebellar Function: Normal Reflexes: Normal Skin: Dry, Normal Color, Warm Lymphatic: No Adenopathy Was a procedure done? Was a procedure done?: No Differential Dx Differential Diagnosis: Bronchitis, CHF, COPD, Pneumonia, Pulmonary Embolism, Sinusitis, Pharyngitis, URI X-Ray, Labs, Meds, VS Vital Signs Date Time Temp Pulse Resp B/P (MAP) Pulse Ox O2 Delivery O2 Flow Rate FiO2 12/03/24 12:01 118 20 90/67 (75) 95 12/03/24 12:00 118 90/67 12/03/24 11:00 116 28 112/66 (81) 95 12/03/24 10:23 147 111/87 12/03/24 10:19 156 18 99/66 (77) 94 12/03/24 09:40 149 16 87 Nasal Cannula* 2 28 12/03/24 09:40 97.7 149 16 114/72 (86) 87 97.7 12/03/24 09:29 97.7 156 22 130/78 (95) 97 97.7 12/03/24 09:26 157 Lab Test 12/03/24 11:04 12/03/24 10:05 Range/Units Troponin I High Sensitivity 15 </=54 ng/L White Blood Count 7.9 4.4-10.8 10^3/uL Red Blood Count 5.16 4.5-5.90 10^6/uL Hemoglobin 14.7 13.5-17.5 g/dL Hematocrit 44.5 41.0-53.0 % Mean Corpuscular Volume 86.3 80.0-100.0 fL Mean Corpuscular Hemoglobin 28.4 28.0-32.0 pg Mean Corpuscular Hemoglobin Concent 33.0 32.0-36.0 g/dL Red Cell Distribution Width 18.2 H 11.8-14.3 % Platelet Count 236 140-450 10^3/uL Mean Platelet Volume 7.3 6.9-10.8 fL Neutrophils (%) (Auto) 75.9 37.0-80.0 % Lymphocytes (%) (Auto) 16.4 10.0-50.0 % Monocytes (%) (Auto) 7.0 0.0-12.0 % Eosinophils (%) (Auto) 0.2 0.0-7.0 % Basophils (%) (Auto) 0.5 0.0-2.0 % Neutrophils # (Auto) 6.0 1.6-8.6 10 ^3/uL Lymphocytes # (Auto) 1.3 0.4-5.4 10 ^3/uL Monocytes # (Auto) 0.6 0-1.3 10 ^3/uL Eosinophils # (Auto) 0 0-0.8 10 ^3/uL Basophils # (Auto) 0 0-0.2 10 ^3/uL Nucleated Red Blood Cells 0.1 % Sodium Level 144 136-145 mmol/L Potassium Level 3.5 3.5-5.1 mmol/L Chloride Level 111 H 98-107 mmol/L Carbon Dioxide Level 22 20-31 mmol/L Anion Gap 11 5-15 Blood Urea Nitrogen 14 9-23 mg/dL Creatinine 1.01 0.700-1.30 mg/dL Glomerular Filtration Rate Calc 72 >90 mL/min BUN/Creatinine Ratio 13.9 10.0-20.0 Serum Glucose 121 H 74-106 mg/dL Lactic Acid Level 2.7 *H 0.4-2.0 mmol/L Calcium Level 10.0 8.7-10.4 mg/dL B-Type Natriuretic Peptide 436.54 0-100 pg/mL Current Medications Medications (Trade) Dose Ordered Sig/Berkley Route Start Time Stop Time Status Last Admin Sodium Chloride 1,000 ml @ 1,000 mls/hr Q1H ONCE IV 12/03/24 10:00 12/03/24 10:59 DC 12/03/24 09:50 Metoprolol Tartrate (Lopressor) 5 mg ONCE ONCE IV 12/03/24 10:15 12/03/24 10:16 DC 12/03/24 10:23 [place] [id number] Ph: [phone] DIAGNOSTIC IMAGING Diagnostic Imaging Report : [id number] Signed PATIENT: LEONOR BAE ACCT: [id number] UNIT: [id number] : 1940 LOC: ER ROOM / BED: / AGE / SEX: 84 / M ADM STATUS: REG ER SERVICE [id number] ORDERING PHYSICIAN: ANDIE MITCHELL MD PROCEDURE(s): CXRP - CHEST PORTABLE REASON: shortness of breath ORDER NUMBER(s): [id number], ACCESSION NUMBER(s): [id number] EXAM: XY CHEST PORTABLE HISTORY: shortness of breath COMPARISON: XY CHEST PORTABLE on DOS: 06/07/24, CT scan of the chest dated 06/09/2024. TECHNIQUE: Portable upright AP view of the chest was performed. FINDINGS: There are new patchy infiltrates in the right lung base. Left lung infiltrate seen previously has resolved. There is chronic interstitial prominence in the upper lobes. Emphysematous changes are better characterized on prior CT scan. No pneumothorax. The heart is enlarged. There are postoperative changes of median sternotomy. IMPRESSION: 1. Right basilar pneumonia. 2. Cardiomegaly and postoperative changes of the heart. 3. Emphysema and reactive airways disease. ATED BY: JAYSON GREGORY MD DICTATED DATE/TIME: 12/03/24 101 SIGNED BY: JAYSON GREGORY MD SIGNED DATE/TIME: 12/03/24 1014 CC: Time of 1ST Reevaluation: 10:13 Reevaluation 1ST: Unchanged Patient Education/Counseling: Diagnosis, Treatment Family Education/Counseling: Diagnosis, Treatment SEPSIS Sepsis Screen Date sepsis recognized/suspect: Dec 03, 2024 Time Sepsis recognized/suspect: 924 Recent Procedure: No On Antibiotic Therapy: No Respiratory Rate >20: Yes Heart Rate >90: Yes Temp<36 C (96.8 F) or >38.3 C: No SBP <90 or MAP <65 mmHG: No New Acute Mental Status Change: No Is the patient on CPAP, BIPAP,: No Physician Orders Blood Culture (12/03/24 09:46) Chest Portable (12/03/24 09:46) Urinalysis (12/03/24 09:46) Electrocardigram (12/03/24 09:46) Troponin-I Hs (12/03/24 12:46) Electrocardigram (12/03/24 10:46) Electrocardigram (12/03/24 12:46) Cefepime 2gm Extended Infusion (12/03/24 12:30) Vancomycin (12/03/24 12:30) Azithromycin Tablet (Zithromax Tablet) (12/03/24 12:30) NS (12/03/24 12:30) Vital Signs Date Time Temp Pulse Resp B/P (MAP) Pulse Ox O2 Delivery O2 Flow Rate FiO2 12/03/24 12:01 118 20 90/67 (75) 95 12/03/24 12:00 118 90/67 12/03/24 11:00 116 28 112/66 (81) 95 12/03/24 10:23 147 111/87 12/03/24 10:19 156 18 99/66 (77) 94 12/03/24 09:40 149 16 87 Nasal Cannula* 2 28 12/03/24 09:40 97.7 149 16 114/72 (86) 87 97.7 12/03/24 09:29 97.7 156 22 130/78 (95) 97 97.7 12/03/24 09:26 157 Laboratory Tests Test 12/03/24 10:05 Lactic Acid Level 2.7 mmol/L (0.4-2.0) *H White Blood Count 7.9 10^3/uL (4.4-10.8) Medications Medications Dose Ordered Sig/Berkley Route Start Time Stop Time Status Last Admin Dose Admin Metoprolol Tartrate 5 mg ONCE ONCE IV 12/03/24 10:15 12/03/24 10:16 DC 12/03/24 10:23 Sodium Chloride 1,000 ml @ 1,000 mls/hr Q1H ONCE IV 12/03/24 10:00 12/03/24 10:59 DC 12/03/24 09:50 Departure 1 Departure Time of Disposition: 12:20 (Patient presented with acute shortness of breath concerning for acute on chronic COPD Exacerbation, Pneumonia, ACS, CHF, Pneumothorax. Less likely PE, Dissection. Patient does not appear septic at this time.Data: 1. I ordered and reviewed the result of at least 3 labs including a CBC, BMP, and Troponin. 2. I independently interpreted the following tests: Chest X-ray shows a pneumonia.Risk:This patient has a high risk of morbidity due to further diagnostic testing or treatment and may suffer from respiratory or cardiac etiology . Workup reveals a pneumonia, patient will be started on antibiotics, admitted for further workup and possible expert consultation.Patient found to have AFib with RVR gave patient metoprolol and patient's vitals improved. We will not give the patient a full fluid bolus as patient is clinically volume overloaded.) Impression: Primary Impression: Atrial fibrillation with RVR Additional Impression: Right lower lobe pneumonia Qualified Codes: J18.9 - Pneumonia, unspecified organism Disposition: 09 ADMITTED INPATIENT Admit to: Med Surg Condition: Guarded Critical Care Note Critical Care Time?: Yes Critical care comment: AFib with RVR Authorized and Performed by: Andie Mitchell MD Total critical care time: Approximately 48 minutes Due to a high probability of clinically significant, life threatening deterioration, the patient required my highest level of preparedness to intervene emergently and I personally spent this critical care time directly and personally managing the patient. This critical care time included obtaining a history; examining the patient; pulse oximetry; ordering and review of studies; arranging urgent treatment with development of a management plan; evaluation of patient's response to treatment; frequent reassessment; and, discussions with other providers. This critical care time was performed to assess and manage the high probability of imminent, life-threatening deterioration that could result in multi-organ failure. It was exclusive of separately billable procedures and treating other patients and teaching time. Please see my other sections and the rest of the note for further information on patient assessment and treatment. Stability Stability form required: No Heart Score Heart Score: Heart Score Response (Comments) Value History N/A 0 EKG N/A 0 Age N/A 0 Risk Factors N/A 0 Troponin N/A 0 Total 0 I personally scribed for ANDIE MITCHELL MD ([email or web address]) on 12/03/24 at 10:13. Electronically submitted by Saundra Mccarty ([email or web address]). I personally scribed for ANDIE MITCHELL MD ([email or web address]) on 12/03/24 at 10:40. Electronically submitted by Saundra Mccarty ([email or web address]). ANDIE MITCHELL MD Dec 03, 2024 10:13
--- NOTE | 2024-12-03 10:17 | DVH ---
EXAM: XY CHEST PORTABLE HISTORY: shortness of breath COMPARISON: XY CHEST PORTABLE on DOS: 06/07/24, CT scan of the chest dated 06/09/2024. TECHNIQUE: Portable upright AP view of the chest was performed. FINDINGS: There are new patchy infiltrates in the right lung base. Left lung infiltrate seen previously has res olved. There is chronic interstitial prominence in the upper lobes. Emphysematous changes are better characterized on prior CT scan. No pneumothorax. The heart is enlarged. There are postoperative gavin ges of median sternotomy. IMPRESSION: 1. Right basilar pneumonia. 2. Cardiomegaly and postoperative changes of the heart. 3. Emphysema and reactive airways disease.
[2024-12-03] MEDS: METOPROLOL TARTRATE 1MG/1ML-5ML VIAL IV ONE (10:23)
[2024-12-03 10:29] LABS: Hematocrit 44.5 % (41.0-53.0); Hemoglobin 14.7 g/dL (13.5-17.5); Mean Corpuscular Hemoglobin 28.4 pg (28.0-32.0); Mean Corpuscular Volume 86.3 fL (80.0-100.0); Nucleated Red Blood Cells % 0.1 %
[2024-12-03 10:41] LABS: Potassium 3.5 mmol/L (3.5-5.1); Sodium 144 mmol/L (136-145)
[2024-12-03 10:42] LABS: Anion Gap 11 (5-15); Calcium 10.0 mg/dL (8.7-10.4); Carbon Dioxide 22 mmol/L (20-31)
[2024-12-03 10:45] LABS: Chloride 111 mmol/L (98-107)
[2024-12-03 10:47] LABS: BUN/Creatinine Ratio 13.9 (10.0-20.0); Blood Urea Nitrogen 14 mg/dL (9-23)
[2024-12-03 10:50] LABS: Glucose 121 mg/dL (74-106)
[2024-12-03 10:52] LABS: Lactic Acid w/Reflex 2.7 mmol/L (0.4-2.0)
[2024-12-03] MEDS: AZITHROMYCIN 250 MG TAB PO ONE (12:30)
[2024-12-03] MEDS: VANCOMYCIN 1GM/200ML PM 200 ML IV ONE (12:50)
[2024-12-03] MEDS: CEFEPIME 2GM/50ML NS 50 ML IV ONE (12:59)
[2024-12-03] MEDS: AZITHROMYCIN 500MG/ 250ML 250 ML IV ONE (14:24)
[2024-12-03] MEDS ORDERED: ACETAMINOPHEN 325 MG TAB PO PRN (15:00)
[2024-12-03] MEDS ORDERED: MORPHINE SULFATE INJ 2 MG/ml SYRG IV PRN (15:00)
[2024-12-03] MEDS ORDERED: NITROGLYCERIN 0.4 MG SL TAB SL PRN (15:00)
[2024-12-03] MEDS ORDERED: HYDROcodone-ACET 5/325MG TAB PO PRN (15:00)
[2024-12-03] MEDS ORDERED: DOCUSATE SOD 100 MG CAP PO PRN (15:00)
[2024-12-03] MEDS ORDERED: ONDANSETRON HCL 4 MG/2 ML VIAL IV PRN (15:00)
--- NOTE | 2024-12-03 15:39 | DVHHP2 ---
History of Present Illness Reason for Visit: Shortness of breath History of Present Illness Kavon Cid is an 84-year-old male with past medical history of hypertension, hyperlipidemia, CHF, COPD, and CAD who came into the hospital for shortness of breath. Patient states he has not been feeling well for about 7-10 days. He does not wear home oxygen. Per his daughter, he has been mostly sleeping the last couple of days. She tried to get him to come to the hospital a couple days ago, but he didn't want to. Yesterday she noticed that he his oxygenation was low, and she was able to convince him to come in today. He was a daily smoker of 1 pack/day. States he quite Tuesday. Cardiovascular: CAD, CHF, HTN, hyperipidemia Pulmonary: COPD Past Surgical History: Appendectomy, CABG, Tonsillectomy Smoke: 1 pack per day ALCOHOL: none Drugs: None Lives: with Family Domestic Violence: Neg Review of Systems Constitutional: Yes: Weakness, Malaise; No: Fever, Chills, Sweats, Other Eyes: No: Pain, Vision change, Conjunctivae inflammation, Eyelid inflammation, Other, Redness ENT: No: Ear pain, Ear discharge, Nose pain, Nose discharge, Nose congestion, Mouth pain, Mouth swelling, Throat pain, Throat swelling, Other Respiratory: Shortness of breath, SOB with excertion, Wheezing; No: Cough, Dry, Hemoptysis, Pleuritic Pain, Sputum, Wheezing, Other Cardiovascular: No: Chest Pain, Palpitations, Orthopnea, Paroxysmal Noc. Dyspnea, Edema, Lt Headedness, Other Gastrointestinal: No: Nausea, Vomiting, Abdominal Pain, Diarrhea, Constipation, Melena, Hematochezia, Other Genitourinary: No Dysuria, No Frequency, No Incontinence, No Hematuria, No Retention, No Other Musculoskeletal: No: other, neck pain, shoulder pain, arm pain, back pain, hand pain, leg pain, foot pain Skin: No: Rash, Lesions, Jaundice, Bruising, Other Neurological: No: Weakness, Numbness, Incoordination, Change in speech, Confusion, Seizures, Other Allergies: Coded Allergies: NO KNOWN ALLERGIES (Unverified , 06/08/24) Exam Vital Signs Vital Signs Date Time Temp Pulse Resp B/P (MAP) Pulse Ox O2 Delivery O2 Flow Rate FiO2 12/03/24 12:01 118 20 90/67 (75) 95 12/03/24 09:40 Nasal Cannula* 2 28 12/03/24 09:40 97.7 97.7 General Appearance: Alert, Oriented X3, Cooperative, moderate distress HEENT: Atraumatic, PERRLA Respiratory: Other (Dimishied breath sounds, wheezing) Cardiovascular: Other (Atrial fibrillation with RVR) Abdominal: Normal bowel sounds, Soft, No tenderness, No hepatospenomegaly Extremities: No clubbing, No cyanosis, No edema, Normal pulses, No tenderness/swelling Skin: No rashes, No breakdown, No significant lesion Neuro: Normal speech, Other (Minimal ambulation at baseline, uses a walker) Psych/Mental Status: Mental status NL, Mood NL Labs/Xrays Labs Test 12/03/24 13:39 12/03/24 12:09 12/03/24 10:05 Range/Units Troponin I High Sensitivity 14 </=54 ng/L Lactic Acid Level 3.0 *H 0.4-2.0 mmol/L White Blood Count 7.9 4.4-10.8 10^3/uL Red Blood Count 5.16 4.5-5.90 10^6/uL Hemoglobin 14.7 13.5-17.5 g/dL Hematocrit 44.5 41.0-53.0 % Mean Corpuscular Volume 86.3 80.0-100.0 fL Mean Corpuscular Hemoglobin 28.4 28.0-32.0 pg Mean Corpuscular Hemoglobin Concent 33.0 32.0-36.0 g/dL Red Cell Distribution Width 18.2 H 11.8-14.3 % Platelet Count 236 140-450 10^3/uL Mean Platelet Volume 7.3 6.9-10.8 fL Neutrophils (%) (Auto) 75.9 37.0-80.0 % Lymphocytes (%) (Auto) 16.4 10.0-50.0 % Monocytes (%) (Auto) 7.0 0.0-12.0 % Eosinophils (%) (Auto) 0.2 0.0-7.0 % Basophils (%) (Auto) 0.5 0.0-2.0 % Neutrophils # (Auto) 6.0 1.6-8.6 10 ^3/uL Lymphocytes # (Auto) 1.3 0.4-5.4 10 ^3/uL Monocytes # (Auto) 0.6 0-1.3 10 ^3/uL Eosinophils # (Auto) 0 0-0.8 10 ^3/uL Basophils # (Auto) 0 0-0.2 10 ^3/uL Nucleated Red Blood Cells 0.1 % Sodium Level 144 136-145 mmol/L Potassium Level 3.5 3.5-5.1 mmol/L Chloride Level 111 H 98-107 mmol/L Carbon Dioxide Level 22 20-31 mmol/L Anion Gap 11 5-15 Blood Urea Nitrogen 14 9-23 mg/dL Creatinine 1.01 0.700-1.30 mg/dL Glomerular Filtration Rate Calc 72 >90 mL/min BUN/Creatinine Ratio 13.9 10.0-20.0 Serum Glucose 121 H 74-106 mg/dL Calcium Level 10.0 8.7-10.4 mg/dL B-Type Natriuretic Peptide 436.54 0-100 pg/mL EXAM: XY CHEST PORTABLE FINDINGS: There are new patchy infiltrates in the right lung base. Left lung infiltrate seen previously has resolved. There is chronic interstitial prominence in the upper lobes. Emphysematous changes are better characterized on prior CT scan. No pneumothorax. The heart is enlarged. There are postoperative changes of median sternotomy. IMPRESSION: 1. Right basilar pneumonia. 2. Cardiomegaly and postoperative changes of the heart. 3. Emphysema and reactive airways disease. Assessment/Plan Assessment/Plan Assessment: Right lower lobe pneumonia, New onset atrial fibrillation, COPD, Hypertension, CHF, Hyperlipidemia, Plan: Admit to Tele, Cardiology consult, IV antibiotics, IV steroids, IV hydration, IV amiodarone, Breathing treatments, Sputum culture, Home medications reconciled, Plan discussed with: Patient My Orders Orders - LUIS BLACKWOOD Procedure Category Date Status Time Admit ADMIT 12/03/24 Transmitted 14:54 Code Status CODE 12/03/24 Transmitted 14:54 Hydrocodone-Acet PHA 12/03/24 Transmitted 5/325mg Tab ([place] 15:00 Ondansetron Hcl PHA 12/03/24 Transmitted (Zofran) 15:00 Docusate Sodium PHA 12/03/24 Transmitted Capsule (Colace 15:00 Fall Risk Precautions SARAH 12/03/[address] 14:54 Complete Blood Count LAB 12/04/24 Verified 04:00 Comprehensive LAB 12/04/24 Verified Metabolic Panel 04:00 Cardiac DIET 12/03/24 Transmitted Diet-2gna,Lofat,Lochol Dinner Condition: Serious SARAH 12/03/24 Transmitted 14:54 Acetaminophen Tablet [facility] 12/03/24 Transmitted (Tylenol Tablet) 15:00 Nitroglycerin [facility] 12/03/24 Transmitted Sublingual (Ntrostat 15:00 Morphine Sulfate PHA 12/03/24 Transmitted Injection 15:00 Stat Ekg For Chest [facility] 12/03/24 Transmitted Pain 14:54 Notify Md Of Changes [facility] 12/03/24 Transmitted From Base 14:54 Regional Account Executive For [facility] 12/03/24 Transmitted 24 Hours 14:54 Emergency Dysrhythmia [facility] 12/03/24 Transmitted Protocol 14:54 Rhythm Strips Once [facility] 12/03/24 Transmitted Every Shift 14:54 Oxygen By Nasal RT 12/03/24 Transmitted Cannula 14:54 Azithromycin 500mg/ PHA 12/04/24 Transmitted 250ml (Zithromax 50 10:00 Ipratropium Medneb PHA 12/03/24 Transmitted (Atrovent Medneb) 18:00 Ceftriaxone Ivpb PHA 12/04/24 Transmitted Rocephin 09:00 Albuterol Medneb PHA 12/03/24 Transmitted (Ventolin Medneb) 18:00 Methylprednisolone PHA 12/03/24 Transmitted Sod Succ (Solu Medrol 22:00 Respiratory Culture DANA 12/03/24 Transmitted W/ Gs 14:54 * Cardiology Consult CONS 12/03/24 Transmitted 14:54 Amiodarone 150 Mg PHA 12/03/24 Transmitted Bolus 15:00 Amiodarone Drip 1 PHA 12/03/24 Transmitted Mg/Min X 6hr 15:15 Amiodarone Drip 0.5 PHA 12/03/24 Transmitted Mg/Min 21:15 Finasteride Tablet PHA 12/04/24 Transmitted (Proscar Tablet) 10:00 (Nf) Atorvastatin PHA 12/03/24 Transmitted Calcium 22:00 (Nf) Gabapentin PHA 12/04/24 Transmitted 10:00 (Nf) Metoprolol PHA 12/04/24 Transmitted Succinate (Metoprolol 10:00 Date of Service: Dec 03, 2024 Billing Provider: LUIS BLACKWOOD Common Visit Codes: [id number] INP/OBS CARE (MOD) LUIS BLACKWOOD Dec 03, 2024 15:39
[2024-12-03] MEDS ORDERED: cefTRIAXone 1GM/50ML D5W 50 ML IV SCH ×2 (15:45→22:00)
[2024-12-03 16:00] VITALS: PULSE 140; RESP 22; O2SAT 94
[2024-12-03] MEDS: AMIODARONE BOLUS KIT 100 ML IV ONE (16:03)
[2024-12-03] MEDS: AMIODARONE 360mg/200mL PREMIX 200 ML IV ONE (16:06)
[2024-12-03 16:17] LABS: Urine Protein, UAD 1+ (Negative)
[2024-12-03] MEDS: NOREPINEPHRINE BITARTRATE 32 MG in SODIUM CHL 0.9% 218 ML IV SCH (16:24)
--- NOTE | 2024-12-03 16:37 | DVHINCON2 ---
Family History: FH: cancer G8 MOTHER G8 FATHER MATERNAL GRANDMOTHR Allergies: Coded Allergies: NO KNOWN ALLERGIES (Unverified , 06/08/24) Home Meds Reported Medications Naproxen (NAPROSYN TABLET) 500 Mg Tb, 1 TAB PO BID, #60 TAB 1 Refill 06/08/24 Atorvastatin Calcium (ATORVASTATIN CALCIUM) 80 Mg Tab, 80 MG PO HS, TAB 06/08/24 Metoprolol Succinate (Metoprolol Succinate Er) 25 Mg Tab, 25 MG PO DAILY for 30 Days, MG 06/08/24 Finasteride (Finasteride) 5 Mg Tab, 5 MG PO DAILY, TAB 06/08/24 Gabapentin (GABAPENTIN) 250 Mg/5 Ml Kirsty, 400 MG PO DAILY, ML 06/08/24 Discontinued Scripts Levofloxacin Hemihydrate (LEVAQUIN 500 MG) 500 Mg Tab, 1 TAB PO DAILY, #10 TAB Prov:PAULINO TOPETE MD 06/14/24 Current Medications Current Medications Medications (Trade) Dose Ordered Sig/[place] Route PRN Reason Start Time Stop Time Status Last Admin Acetaminophen/ Hydrocodone Bitart ([place] 5/325MG Tab) 1 tab Q4HP PRN PO MODERATE PAIN (4-6 PAIN SCALE) 12/03/24 15:00 Ondansetron HCl (Zofran) 4 mg Q4HP PRN IV NAUSEA / VOMITING 12/03/24 15:00 Docusate Sodium (Colace Capsule) 100 mg BIDPRN PRN PO FOR CONSTIPATION 12/03/24 15:00 Acetaminophen (Tylenol Tablet) 650 mg Q6HP PRN PO PAIN SCALE 1-3 OR TEMP>100.4 12/03/24 15:00 Nitroglycerin (Ntrostat Sublingual) 0.4 mg Q5MINP PRN SL FOR CHEST PAIN 12/03/24 15:00 Morphine Sulfate 2 mg Q30M PRN IV FOR CHEST PAIN 12/03/24 15:00 Azithromycin 250 ml @ 125 mls/hr DAILY IV 12/04/24 10:00 Ipratropium [place] (Atrovent Medneb) 0.5 mg Q6HWA NEB 12/03/24 18:00 Ceftriaxone Sodium 50 ml @ 100 mls/hr DAILY@09 IV 12/03/24 15:45 12/03/24 15:50 DC Albuterol (Ventolin Medneb) 2.5 mg Q6HWA NEB 12/03/24 18:00 Methylprednisolone Sodium Succinate (Solu Medrol) 40 mg BID IV 12/03/24 22:00 Finasteride (Proscar Tablet) 5 mg DAILY PO 12/04/24 10:00 Atorvastatin Calcium (Lipitor) 80 mg HS PO 12/04/24 22:00 Gabapentin (Neurontin Capsule) 400 mg DAILY PO 12/04/24 10:00 Metoprolol Succinate (Toprol Xl) 25 mg DAILY PO 12/04/24 10:00 Ceftriaxone Sodium 50 ml @ 100 mls/hr DAILY@09 IV 12/03/24 22:00 Vital Signs Vital Signs Date Time Temp Pulse Resp B/P (MAP) Pulse Ox O2 Delivery O2 Flow Rate FiO2 12/03/24 12:01 118 20 90/67 (75) 95 12/03/24 09:40 Nasal Cannula* 2 28 12/03/24 09:40 97.7 97.7 Labs/Diagnostic Data Labs Test 12/03/24 16:02 12/03/24 13:39 12/03/24 12:09 12/03/24 10:05 Range/Units Urine Color Yellow Yellow Urine Clarity Clear Clear Urine pH 5.5 5.0-9.0 Urine Specific [place] 1.037 H 1.001-1.035 Urine Protein 1+ H Negative Urine Ketones Negative Negative Urine Blood Negative Negative /uL Urine Nitrite Negative Negative Urine Bilirubin Negative Negative Urine Urobilinogen Normal Negative mg/dL Urine Leukocyte Esterase Negative Negative /uL Urine RBC 2 0 - 3 /hpf Urine Microscopic WBC 2 0-3 /HPF Urine Squamous Epithelial Cells None seen <5 /hpf Urine Bacteria None seen None Seen /hpf Urine Glucose 4+ H Normal mg/dL Troponin I High Sensitivity 14 </=54 ng/L Lactic Acid Level 3.0 *H 0.4-2.0 mmol/L White Blood Count 7.9 4.4-10.8 10^3/uL Red Blood Count 5.16 4.5-5.90 10^6/uL Hemoglobin 14.7 13.5-17.5 g/dL Hematocrit 44.5 41.0-53.0 % Mean Corpuscular Volume 86.3 80.0-100.0 fL Mean Corpuscular Hemoglobin 28.4 28.0-32.0 pg Mean Corpuscular Hemoglobin Concent 33.0 32.0-36.0 g/dL Red Cell Distribution Width 18.2 H 11.8-14.3 % Platelet Count 236 140-450 10^3/uL Mean Platelet Volume 7.3 6.9-10.8 fL Neutrophils (%) (Auto) 75.9 37.0-80.0 % Lymphocytes (%) (Auto) 16.4 10.0-50.0 % Monocytes (%) (Auto) 7.0 0.0-12.0 % Eosinophils (%) (Auto) 0.2 0.0-7.0 % Basophils (%) (Auto) 0.5 0.0-2.0 % Neutrophils # (Auto) 6.0 1.6-8.6 10 ^3/uL Lymphocytes # (Auto) 1.3 0.4-5.4 10 ^3/uL Monocytes # (Auto) 0.6 0-1.3 10 ^3/uL Eosinophils # (Auto) 0 0-0.8 10 ^3/uL Basophils # (Auto) 0 0-0.2 10 ^3/uL Nucleated Red Blood Cells 0.1 % Sodium Level 144 136-145 mmol/L Potassium Level 3.5 3.5-5.1 mmol/L Chloride Level 111 H 98-107 mmol/L Carbon Dioxide Level 22 20-31 mmol/L Anion Gap 11 5-15 Blood Urea Nitrogen 14 9-23 mg/dL Creatinine 1.01 0.700-1.30 mg/dL Glomerular Filtration Rate Calc 72 >90 mL/min BUN/Creatinine Ratio 13.9 10.0-20.0 Serum Glucose 121 H 74-106 mg/dL Calcium Level 10.0 8.7-10.4 mg/dL B-Type Natriuretic Peptide 436.54 0-100 pg/mL MELODIE PHILLIP [facility] Dec 03, 2024 16:36
[2024-12-03] MEDS: POTASSIUM CHL 20MEQ/100ML 100 ML IV ONE (16:45)
[2024-12-03 16:50] VITALS: BP 147/85
[2024-12-03] MEDS: MIDAZOLAM DRIP 50 mg/50mL 50 ML IV SCH (16:50)
[2024-12-03] MEDS: EPINEPHrine HCL 250 ML IV ONE (16:52)
[2024-12-03 17:01] LABS: Triglycerides 90.0 mg/dL (< 150)
[2024-12-03 17:02] LABS: Magnesium 2.1 mg/dL (1.6-2.6)
[2024-12-03] MEDS: MIDAZOLAM DRIP 50 mg/50mL 50 ML IV ONE (17:02)
[2024-12-03 17:03] LABS: Cholesterol 123.0 mg/dL (< 200); HDL Cholesterol 44.0 mg/dL (40-59)
[2024-12-03 17:08] LABS: INR 1.77 (0.9-1.15); Partial Thromboplastin Time 27.9 SEC (24.5-34.5); Prothrombin Time 17.7 sec (9.3-11.8)
--- NOTE | 2024-12-03 17:37 | DVH ---
CHEST RADIOGRAPH Indication: Post-intubation Technique: Single frontal view of the chest was obtained COMPARISON: 12/03/2024 FINDINGS: There is interval development of extensive chest wall soft tissue emphysema. There is a needle like device/ thoracic vent device projecting over the right upper chest. Correlate clinically. Small right pneumothorax most pronounced along the right lung base, approximately 10-20% . Endotracheal tube tip projects 3.8 cm above the cayetano. The cardiac silhouette is enlarged. The lungs demonstrate bilateral patchy airspace opacities, signif icantly increased since the previous examination. Interstitial airspace opacities which could represe nt sequela of pulmonary edema, atypical infection, chronic lung changes/disease.The pulmonary vascula ture is prominent. Small bilateral pleural effusions. IMPRESSION: As above
--- NOTE | 2024-12-03 17:49 | RESUS ---
CODE BLUE ASSESSSMENT History of Events History of Events: PATIENT WAS RECIEVING A BREATHING TREATMENT WHEN HE FELT LIKE HE HAD TO COUGH UP PHLEGM. PT WAS THEN SUCTIONED, TOOK A DEEP BREATH AND WENT BRADYCARDIC THEN CODED. Initial Information Date: Dec 03, 2024 (1613) Time: 16:14 Location of Arrest: ER Arrest Witnessed: Yes CPR started initial time: 16:14 CPR started by whom: Hospital Staff Last seen well: 1613 Type of arrest: Respiratory, Witnessed Spontaneous Respirations: No Pulse Present: No Monitoring: ECG, Pulse Oximetry Crash Cart Opened and Supplies: Yes Airway Ventilation Breathing at Onset: Assisted Oxygen Delivery Method: Ambu-Bag Artificial Ventilation: Bag/Endo tube Intubation Time: 16:22 Intubation Size: 8.0 cuffed Intubated by: RESIDENT JHAJJ Intubation Attempts: 1 Intubated orally: Yes Tube secured at: 24 Cricoid pressure done: No CO2 indicator used: No Confirmation: Auscultation, Chest X-ray Suctioning (Oral/Tracheal): Yes Circulation Circulation #1: Time: 16:15 Circulation #2: Time: 16:20 Pulse Rate (adult): 77 Temperature (Fahrenheit): 98.4 Circulation #3: Time: 16:39 Medications & Response Medications and Responses #1: Medication Time: 16:15 ADULT Medications Given ADULT: Epinephrine 1 mg Route of Administration: IV EKG Rhythm: Asystole EKG Rhythm: Asystole Medications and Responses #2: Medication Time: 16:20 ADULT Medications Given ADULT: Epinephrine 1 mg Route of Administration: IV EKG Rhythm: Asystole Medications and Responses #3: Medication Time: 16:16 ADULT Medications Given ADULT: Sodium Bacarbinate 50 meq Route of Administration: IV EKG Rhythm: Asystole Medications and Responses #4: Medication Time: 16:17 ADULT Medications Given ADULT: Calcium Chloride 5 mL Route of Administration: IV EKG Rhythm: Asystole Medications and Responses #5: Medication Time: 16:23 ADULT Medications Given ADULT: Epinephrine 1 mg Route of Administration: IV EKG Rhythm: Asystole Medications and Responses #6: Medication Time: 16:26 ADULT Medications Given ADULT: Epinephrine 1 mg Route of Administration: IV EKG Rhythm: Asystole Medications and Responses #7: Medication Time: 16:24 ADULT Medications Given ADULT: Magnesium Sulfate 2 gm Route of Administration: IV Medications and Responses #8: Medication Time: 16:30 ADULT Medications Given ADULT: Sodium Bacarbinate 50 meq Route of Administration: IV Medications and Responses #9: Medication Time: 16:40 ADULT Medications Given ADULT: Epinephrine 1 mg Route of Administration: IV EKG Rhythm: Asystole Medications and Responses #10: Medication Time: 16:42 ADULT Medications Given ADULT: Epinephrine 1 mg Route of Administration: IV EKG Rhythm: Asystole Medications and Responses #11: Medication Time: 16:43 ADULT Medications Given ADULT: Sodium Bacarbinate 50 meq Route of Administration: IV EKG Rhythm: Asystole Medications and Responses #12: Medication Time: 16:45 ADULT Medications Given ADULT: Epinephrine 1 mg, Calcium Chloride 5 mL Route of Administration: IV Medications and Responses #13: Medication Time: 16:46 ADULT Medications Given ADULT: Sodium Bacarbinate 50 meq Route of Administration: IV EKG Rhythm: Asystole Medications and Responses #14: Medication Time: 16:46 ADULT Medications Given ADULT: Magnesium Sulfate 2 gm Route of Administration: IV EKG Rhythm: Asystole Pacing Pacer Pads Applied and Pacing: No Time Code Ended Time Code Ended: 16:48 Post Arrest Status: Ventilated Outcome of code: Successful Family notified: Yes Code Team Present: ENRIQUE RN,CHANA RNS,DASHAWN RN, DOLORES ERT, DENG ERT, CHEN RNS, LISA PARSONS RESIDENT,RANDEE JEFFREYP,JAISON JEFFREYP, MAYE PARSONS, DORINDA RT, MEGAN RT, MILLY RT ROSC Time of ROSC: 16:48 Pt Meets Criteria for Therapeu: No Therapeutic Hyperthermia Start: No ADI ESPINO Dec 03, 2024 17:49
[2024-12-03] MEDS: NOREPINEPHRINE 8 MG/250ML KIT 250 ML IV ONE (17:53)
--- NOTE | 2024-12-03 17:55 | ED.PDOC ---
Was a procedure done? Was a procedure done?: Yes Sedation Sedation?: No Intubation Indication: Respiratory Insufficiency Prep: No Preoxygenation Pretreated with: Nothing Medicated with: Nothing Intubation Approach: Orotracheal Intubation size: cm (8) Informed consent obtained: No Risks/benefits/alt described: No Departure 1 Departure Time of Disposition: 17:53 (Code blue was called in I presented to the bedside. Patient was emergently intubated with the resident assistance. After multiple rounds of CPR, discussion with family and family decided that they would like patient comfort care only. Patient ultimately 17 14) Impression: Primary Impression: Atrial fibrillation with RVR Additional Impression: Right lower lobe pneumonia Qualified Codes: J18.9 - Pneumonia, unspecified organism Disposition: 20 Admit to: Condition: Other () ANDIE VILLAVICENCIO MD Dec 03, 2024 17:55
[2024-12-03] MEDS: ALBUTEROL SULF 2.5 MG/0.5ML(0.5%) NEB SOLN NEB SCH (18:00)
[2024-12-03] MEDS: IPRATROPIUM BROM 0.5 MG/2.5ML INH SOL NEB SCH (18:00)
[2024-12-03] MEDS ORDERED: AMIODARONE 360mg/200mL PREMIX 200 ML IV SCH (21:15)
[2024-12-03] MEDS ORDERED: methylPREDNISolone SOD SUCC 40 MG/ML VL IV SCH (22:00)
[2024-12-04] MEDS ORDERED: GABAPENTIN 400 MG CAP PO SCH (10:00)
[2024-12-04] MEDS ORDERED: FINASTERIDE 5 MG TAB PO SCH (10:00)
[2024-12-04] MEDS ORDERED: METOPROLOL SUCCINATE XL 50 MG TAB PO SCH (10:00)
[2024-12-04] MEDS ORDERED: AZITHROMYCIN 500MG/ 250ML 250 ML IV SCH (10:00)
[2024-12-04] MEDS ORDERED: ATORVASTATIN 20 MG TAB PO SCH (22:00)
== END 2024-12-03 17:14 | DRG 308 ==
LOC: EDBD 09:23 → ER 09:23 → OVERFLOW 14:54
PROVIDERS: ADMIT Nurse Practitioner Family; ATTEND Nurse Practitioner Family
DX: I48.91 Unspecified atrial fibrillation (principal); J18.9 Pneumonia, unspecified organism; J44.0 Chronic obstructive pulmonary disease with (acute) lower respiratory infection; I11.0 Hypertensive heart disease with heart failure; E78.5 Hyperlipidemia, unspecified; F17.210 Nicotine dependence, cigarettes, uncomplicated; I25.10 Atherosclerotic heart disease of native coronary artery without angina pectoris; I50.9 Heart failure, unspecified; Z95.1 Presence of aortocoronary bypass graft
CPT/HCPCS: 36415; 36600; 71045; 80048; 80061; 81001; 82805; 83036; 83605; 83735; 83880; 84443; 84484; 85025; 85610; 85730; 87040; 92950; 93005; 99291; G0378; J0171; J0692